=== PATIENT | male | born 1950 | race Caucasian/White ===

== ENCOUNTER 2020-07-21 10:51 | Inpatient (IN) | payer MEDICARE, OTHER ==
[2020-07-21] MEDS ORDERED: Morphine 4 MG/ML VIAL ONE ×4 (11:34→19:07)
[2020-07-21] MEDS ORDERED: Ketorolac Tromethamine 30 MG/ML VIAL ONE ×2 (11:35→16:32)
[2020-07-21] MEDS ORDERED: Dexamethasone 10 MG/ML VIAL ONE (11:35)
[2020-07-21] MEDS ORDERED: Diazepam 10 MG/2 ML SYRINGE ONE ×2 (11:52→12:45)
[2020-07-21 11:55] LABS: #Basophils 0.1 thou/uL (0.0-0.2); #Eosinphils 0.4 thou/uL (0.0-0.7); #Lymphocytes 1.3 thou/uL (1.20-3.40); #Monocytes 0.4 thou/uL (0.11-0.59); #Neutrophils 4.8 thou/uL (1.40-6.50); %Basophils 0.8 % (0.0-1.0); %Eosinophils 5.1 % (0.0-10.0); %Lymphocytes 18.8 % (21.0-51.0); %Monocytes 6.2 % (0.0-10.0); %Neutrophils 69.1 % (42.0-75.0); Hemoglobin 13.1 g/dL (14.0-18.0); Mean Corpuscular HGB CONC 33.6 g/dL (32.0-36.0); Mean Corpuscular Hemoglobin 30.8 pg (27.0-31.0); Mean Corpuscular Volume 91.6 fL (78.0-98.0); Mean Platelet Volume 6.6 fL (7.4-10.4); Platelet Count 178 thou/uL (130-400); RBC Distribution Width 11.8 % (11.5-14.5); Red Blood Cell (RBC) Count 4.27 mill/uL (4.70-6.10)
[2020-07-21 12:20] LABS: Anion Gap 11 mmol/L (10-20); BUN (Urea Nitrogen) 10 mg/dL (8.4-25.7); CRP (Inflammatory) Less than 0.50 mg/dL (= or < 0.5); Calc. Creatinine Clearance 0 mL/min (70-130); Calcium 9.2 mg/dL (7.8-10.44); Carbon Dioxide 31 mmol/L (23-31); Chloride 97 mmol/L (98-107); Glucose 116 mg/dL (80-115); Potassium 3.4 mmol/L (3.5-5.1); Sodium 136 mmol/L (136-145)
--- NOTE | 2020-07-21 12:21 | CT ---
CT abdomen and pelvis noncontrast HISTORY: Flank pain. FINDINGS: No comparison. Each renal collecting system, ureter, and urinary bladder are decompressed. At the inferior pole of t he right kidney is a 0.2 cm calculus within a nondilated calyx. Calcification throughout the arterial structures. Prominent degenerative changes lumbar spine, including severe foraminal stenoses at the L4-5 level. Scattered throughout the arterial structures are small well-defined sclerotic lesions. The largest is at the right supra-acetabular level measuring up to 1.9 cm x 1.4 cm. Patient was scanned and right lateral decubitus position, distorting intra-abdominal abnormality. Lac k of contrast limits evaluation of the soft tissues. There are bilateral renal cysts, measuring up to 2.1 cm the superior pole of the right kidney and 2.8 cm at the lateral cortex of the left kidney. No evidence of bowel obstruction or inflammation. IMPRESSION : Tiny nonobstructing right renal calculus. Sclerotic bone lesions throughout. Worrisome for metastatic bone disease. Correlate with cancer histo ry. Radionucleotide bone scan could be used to evaluate for an aggressive process (metastases). Atherosclerosis.
[2020-07-21] MEDS ORDERED: Loratadine 10 MG TAB PO PRN (14:30)
[2020-07-21] MEDS ORDERED: Bisacodyl 10 MG SUPP PR PRN (14:30)
[2020-07-21] MEDS ORDERED: Calcium Carbonate 500 MG ChewTAB PO PRN (14:30)
[2020-07-21] MEDS ORDERED: Benzonatate 100 MG CAP PO PRN (14:30)
[2020-07-21] MEDS ORDERED: hydrALAZINE 20 MG/ML VIAL SLOW IVP PRN (14:30)
[2020-07-21] MEDS ORDERED: Acetaminophen 325 MG TAB PO PRN (14:30)
[2020-07-21] MEDS ORDERED: Zolpidem Tartrate 5 MG TAB PO PRN (14:30)
[2020-07-21] MEDS ORDERED: Cepastat Lozenges 1 LOZ PO PRN (14:30)
[2020-07-21] MEDS ORDERED: Sodium Chloride 0.65% Nasal 44 ML BOT EA NARE PRN (14:30)
[2020-07-21] MEDS ORDERED: Ondansetron PF 4 MG/2 ML Vial IVP PRN (14:30)
[2020-07-21] MEDS ORDERED: Guaifenesin DM 100-10/5 ML UDCUP PO PRN (14:30)
[2020-07-21] MEDS ORDERED: Bisacodyl 5 MG TAB PO PRN (14:30)
[2020-07-21] MEDS ORDERED: Senokot S 8.6-50 MG TAB PO PRN (14:30)
[2020-07-21] MEDS ORDERED: Ondansetron ODT 4 MG TAB PO PRN (14:30)
[2020-07-21] MEDS ORDERED: Loperamide HCl 2 MG CAP PO PRN (14:30)
--- NOTE | 2020-07-21 15:31 | PDOC.HHP ---
Hospitalist HPI - History of Present Illness Intractable back pain History of Present Illness: Patient has gradually worsening lower back pain for last 3 weeks, patient has previous history of multiple back surgery in past, for last 3 weeks he has intractable back pain and now he is not able to ambulate because of low back pain, patient went to another emergency room and subsequently he was discharged to rehab and subsequently he went to home, again his pain is so unbearable that he is not able to ambulate at all, he denies any incontinence or urinary retention, patient reports that he is constipated, patient has back pain which radiates to left leg, patient feels comfortable in right lateral position, ED Course: patient is given morphine 4 mg x2, Valium 5 mg x 2, Decadron 10 mg, Toradol 15 mg, VITAL SIGNS Sat Jul 21, 2020 11:00 JORGE LUIS Martin, [facility] BP: 144/79, MAP: 100, Pulse: 106, Resp: 28 (Mild Distress), Temp: 97.9 (Oral), Pain: 10, O2 sat: 98 on (Room Air), Time: 07/21/2020 11:00. VITAL SIGNS Sat Jul 21, 2020 12:16 JORGE LUIS Mar Daylee BP: 140/92, Pulse: 122, Resp: 20, Pain: 9, O2 sat: 95 on (Room Air), Time: 07/21/2020 12:16. VITAL SIGNS Sat Jul 21, 2020 13:53 JORGE LUIS Mar Daylee BP: 105/87, Pulse: 98, Resp: 20, Pain: 8, O2 sat: 96 on (Room Air), Time: 07/21/2020 13:53. VITAL SIGNS Sat Jul 21, 2020 14:47 JORGE LUIS Mar Daylee BP: 135/79, Pulse: 92, Resp: 16, Temp: 97.8 (Oral), Pain: 3, O2 sat: 95 on (Room Air), Time: 07/21/2020 14:47. Hospitalist ROS - Review of Systems Constitutional: denies: fever, chills, sweats, weakness, malaise, other Eyes: denies: pain, vision change, conjunctivae inflammation, eyelid inflammation, redness, other ENT: denies: ear pain, ear discharge, nose pain, nose discharge, nose congestion, mouth pain, mouth swelling, throat pain, throat swelling, other Respiratory: denies: cough, dry, shortness of breath, hemoptysis, SOB with excertion, pleuritic pain, sputum, wheezing, other Cardiovascular: denies: chest pain, palpitations, orthopnea, paroxysmal noc. dyspnea, edema, light headedness, other Gastrointestinal: reports: constipation. denies: nausea, vomiting, abdominal pain, diarrhea, melena, hematochezia, other Genitourinary: denies: dysuria, frequency, incontinence, hematuria, retention, other Musculoskeletal: reports: back pain. denies: neck pain, shoulder pain, arm pain, hand pain, leg pain, foot pain, other Skin: denies: rash, lesions, justina, bruising, other - Medication Medications: Allergy no known drug allergy Home medication CURRENT MEDICATIONS morphine oral Sat Jul 21, 2020 13:10 JORGE LUIS Mar Daylee tablet : Strength - 15 mg : ORAL Patient Dose: As Needed. [place] Sat Jul 21, 2020 13:11 JORGE LUIS Mar Daylee tablet : Strength - 10 mg-325 mg : ORAL Patient Dose: every 6 hours PRN. gabapentin Sat Jul 21, 2020 13:11 JORGE LUIS Mar Daylee capsule : Strength - 400 mg : ORAL Patient Dose: 3 times a day. tiZANidine Sat Jul 21, 2020 13:11 JORGE LUIS Mar Daylee capsule : Strength - 4 mg : ORAL Patient Dose: once a day. desvenlafaxine Sat Jul 21, 2020 13:12 JORGE LUIS Mar Daylee tablet extended release 24 hr : Strength - 50 mg : ORAL Patient Dose: once a day. zolpidem oral Sat Jul 21, 2020 13:12 JORGE LUIS Mar Daylee tablet : Strength - 10 mg : ORAL Patient Dose: once a day. lisinopril Sat Jul 21, 2020 13:12 JORGE LUIS Mar Daylee tablet : Strength - 5 mg : ORAL Patient Dose: once a day. finasteride Sat Jul 21, 2020 13:13 JORGE LUIS Mar Daylee tablet : Strength - 5 mg : ORAL Patient Dose: once a day. busPIRone Sat Jul 21, 2020 13:13 JORGE LUIS Mar Daylee tablet : Strength - 15 mg : ORAL Patient Dose: once a day. terazosin Sat Jul 21, 2020 13:14 JORGE LUIS Mar, [place] capsule : Strength - 10 mg : ORAL Patient Dose: once a day. prednisoLONE Sat Jul 21, 2020 13:15 JORGE LUIS Mar Daylee tablet : Strength - 5 mg : ORAL Patient Dose: 20 mg once a day. CODE STATUS patient is full code Hospitalist History - Past Medical History Other Medical History: Chronic low back pain, Hypertension Benign enlargement of prostate Past psychiatric history anxiety and depression - Past Surgical History Other Surgical History: Spinal surgery x9, bilateral knee surgery - Family History Other Family History: No strong family history of premature coronary artery disease stroke or cancer - Social History Other Social History: Patient is , lives at home with family, no history of tobacco alcohol illicit drug abuse - Exam General Appearance: NAD, ill appearing Eye: PERRL, anicteric sclera ENT: normocephalic atraumatic, no oropharyngeal lesions Neck: supple, symmetric, no JVD, no thyromegaly Heart: RRR, no murmur, no gallops, no rubs Respiratory: CTAB, no wheezes, no rales, no ronchi Gastrointestinal: soft, non-tender, non-distended, normal bowel sounds Extremities: no cyanosis, no clubbing, no edema Skin: normal turgor, no lesions Neurological - other findings: Patient has radicular pain in the left lower extremity, he moves all 4 limb Musculoskeletal: normal tone, normal strength Psychiatric: normal affect, normal behavior, A&O x 3 Hospitalist Results - Labs Result Diagrams: 07/21/20 11:43 07/21/20 11:43 Lab results: WBC 7.0 thou/uL (4.8-10.8) 07/21/20 11:43 Hgb 13.1 g/dL (14.0-18.0) L 07/21/20 11:43 Hct 39.1 % (42.0-52.0) L 07/21/20 11:43 MCV 91.6 fL (78.0-98.0) 07/21/20 11:43 Plt Count 178 thou/uL (130-400) 07/21/20 11:43 Neutrophils % 69.1 % (42.0-75.0) 07/21/20 11:43 Sodium 136 mmol/L (136-145) 07/21/20 11:43 Potassium 3.4 mmol/L (3.5-5.1) L 07/21/20 11:43 Chloride 97 mmol/L (98-107) L 07/21/20 11:43 Carbon Dioxide 31 mmol/L (23-31) 07/21/20 11:43 BUN 10 mg/dL (8.4-25.7) 07/21/20 11:43 Creatinine 1.21 mg/dL (0.7-1.3) 07/21/20 11:43 Glucose 116 mg/dL (80-115) H 07/21/20 11:43 Calcium 9.2 mg/dL (7.8-10.44) 07/21/20 11:43 C-Reactive Protein Less than 0.50 mg/dL (= or < 0.5) 07/21/20 11:43 - EKG Interpretation EKG: Normal sinus rhythm - Radiology Interpretation CT scan - abdomen Status: image reviewed by me Additional Comment: IMPRESSION : Tiny nonobstructing right renal calculus. Sclerotic bone lesions throughout. Worrisome for metastatic bone disease. Correlate with cancer histo ry. Radionucleotide bone scan could be used to evaluate for an aggressive process (metastases). Atherosclerosis. Hospitalist H&P A/P - Problem (1) Intractable low back pain Code(s): M54.5 - LOW BACK PAIN Status: Acute (2) Lumbar back pain with radiculopathy affecting left lower extremity Code(s): M54.16 - RADICULOPATHY, LUMBAR REGION Status: Acute (3) Hypertension Code(s): I10 - ESSENTIAL (PRIMARY) HYPERTENSION Status: Chronic (4) Hypokalemia Code(s): E87.6 - HYPOKALEMIA Status: Acute (5) Metastasis Code(s): C79.9 - SECONDARY MALIGNANT NEOPLASM OF UNSPECIFIED SITE Status: Suspected Qualifiers: Area of secondary neoplastic involvement: bone Qualified Code(s): C79.51 - Secondary malignant neoplasm of bone - Plan Plan: Admission to medical floor Pain control with morphine and [place] Bone scan to rule out metastasis Patient will need MRI lumbar spine if he is able to lie down his back, Neurosurgery consultation and pain management consultation PT OT consultation His home medication will be reconciled We are keeping this patient in hospital because he has intractable back pain and that his pain is legitimate as well as he is not ambulatory, he cannot be managed at home with this level of pain, if pain medicine does not work then will consider [employer]PRENTICE pump DVT prophylaxis Lovenox 40 mg subcu daily GI prophylaxis Pepcid Disposition plan based on clinical course may need rehab again
[2020-07-21 16:50] LABS: Bacteria/HPF None Seen HPF (None Seen); Bilirubin Negative (Negative); Blood, Urine Negative (Negative); Clarity Clear (Clear); Glucose, Urine (Dipstick) Normal (Negative); Ketone, Urine Negative (Negative); Leukocyte Negative Leu/uL (Negative); Nitrite Negative (Negative); Protein, Urine (Dipstick) Negative (Neg-Trace); RBC/HPF None Seen HPF (0-3); Specific Gravity, Urine 1.008 (1.002-1.036); Squamous Epithelial None Seen HPF (0-3); Urobilinogen Normal mg/dL (Less than 2); WBC/HPF 0-3 HPF (0-3)
[2020-07-21] MEDS ORDERED: Potassium Chloride 20 MEQ TAB PO SCH (19:00)
[2020-07-21 20:35] VITALS: BMI 34.8
[2020-07-21] MEDS: HYDROcodone/Acetaminophen 10/325 mg Tablet PO PRN (20:45)
[2020-07-21] MEDS: Famotidine 20 MG TAB PO SCH (22:02)
[2020-07-21] MEDS: Morphine 4 MG/ML VIAL SLOW IVP PRN (22:08)
[2020-07-22 02:00] LABS: SARS-CoV-2 MS2 Positive; SARS-CoV-2 N Gene Negative; SARS-CoV-2 S Gene Negative; SARS-CoV-2 by NAA Not Detected (NotDetected); SARS-CoV-2 orf1ab Negative
[2020-07-22] MEDS: Morphine 4 MG/ML VIAL SLOW IVP PRN ×2 (03:44→10:05)
[2020-07-22] MEDS: Ketorolac Tromethamine 30 MG/ML VIAL IVP PRN ×2 (03:51→14:57)
[2020-07-22] MEDS: HYDROcodone/Acetaminophen 10/325 mg Tablet PO PRN ×2 (05:36→14:24)
[2020-07-22 06:45] LABS: #Lymphocytes 0.8 thou/uL (1.20-3.40); #Monocytes 0.5 thou/uL (0.11-0.59); #Neutrophils 6.4 thou/uL (1.40-6.50); %Basophils 0.3 % (0.0-1.0); %Eosinophils 0.3 % (0.0-10.0); %Lymphocytes 10.5 % (21.0-51.0); %Monocytes 6.7 % (0.0-10.0); %Neutrophils 82.2 % (42.0-75.0); Hemoglobin 11.7 g/dL (14.0-18.0); Mean Corpuscular HGB CONC 32.5 g/dL (32.0-36.0); Mean Corpuscular Hemoglobin 29.3 pg (27.0-31.0); Mean Corpuscular Volume 90.1 fL (78.0-98.0); Mean Platelet Volume 7.1 fL (7.4-10.4); Platelet Count 173 thou/uL (130-400); RBC Distribution Width 11.6 % (11.5-14.5); Red Blood Cell (RBC) Count 3.99 mill/uL (4.70-6.10); White Blood Cell (WBC) Count 7.8 thou/uL (4.8-10.8)
[2020-07-22 06:56] LABS: ALT (SGPT) 18 U/L (8-55); AST (SGOT) 12 U/L (5-34); Albumin 3.3 g/dL (3.4-4.8); Alkaline Phosphatase 61 U/L (40-110); Anion Gap 13 mmol/L (10-20); BUN (Urea Nitrogen) 16 mg/dL (8.4-25.7); Bilirubin, Total 0.3 mg/dL (0.2-1.2); Calc. Creatinine Clearance 89 mL/min (70-130); Calcium 8.9 mg/dL (7.8-10.44); Carbon Dioxide 25 mmol/L (23-31); Chloride 101 mmol/L (98-107); Globulin 3.4 g/dL (2.4-3.5); Glucose 132 mg/dL (80-115); Potassium 4.3 mmol/L (3.5-5.1); Protein, Total 6.7 g/dL (5.8-8.1); Sodium 135 mmol/L (136-145)
[2020-07-22] MEDS: Famotidine 20 MG TAB PO SCH (08:21)
[2020-07-22] MEDS: Enoxaparin Sodium 40 MG/0.4 ML SYRINGE SC SCH (08:24)
--- NOTE | 2020-07-22 08:40 | PRG ---
DATE OF SERVICE: 07/22/2020 I personally interviewed and examined the patient, agreed with documentation of Ivan Almaguer PA-C, dated 07/22/2020. Briefly, Tyler Rosario is a 69-year-old gentleman who had a cervical spine operation by Dr. Logan 7 years ago. 4 weeks ago, he was standing in the bathtub, slipped, and fell and he has had intractable back pain since. Dr. Watson is offered him an epidural steroid injection planned in the future. It is with this history that Mr. Rosario is getting worse and is unable to stand or walk for any significant distance. He came to the emergency department for further care. Mr. Rosario's pain starts in the back and radiates in L5 distribution to the top of the left foot. He has not noticed much in the way of weakness. No right leg symptoms. There are no changes in bowel or bladder control. He has not had fevers or chills. Overnight, the maximum temperature I see recorded is 99.3 degrees Fahrenheit. Blood pressures are in the 130s to 150s. On examination, the EHL is weak on the left, but he tells me he had a laceration to the tendon there. The anterior tib is strong. There is numbness in L5 distribution on the left compared to the right. Reflexes were preserved. CT examination of the spine and bony pelvis shows sclerotic lesions diffusely in the skeleton. The sclerotic lesions could represent diffuse metastatic disease, likely prostate. I do not have MR imaging, specifically looking at the left L5 nerve root. IMPRESSION: 1. Left L5 radiculopathy. 2. Prior cervical spine surgery. 3. Diffuse bony sclerotic lesions, worrisome for metastatic disease (possibly prostate). I reassured Mr. Rosario that the neurosurgery was interested in helping him with his radicular pain. His possibly metastatic issues, the multiple sclerotic lesions within the bony skeleton, need workup. There is one just above the acetabulum in the pelvis, there is anteriorly in the pelvis, there are multiple in the lumbar spine, there is one in the sacrum. We will defer to the Medical team for workup of metastatic disease causing blastic lesions. At some point, an MRI scan of lumbar spine will be helpful in determining what is compressing the L5 nerve root on the left. Pain management could be initiated with L5 nerve root block and Dr. Watson who already knows the patient. An MRI scan, when it is done, may need to be administered with the anesthesia. Once it was done, I revisit the patient. Job ID: [id number] MTDD
[2020-07-22] MEDS ORDERED: FLU VACC QS2020-21(65YR UP)/PF 240 MCG/0.7 ML SYRINGE IM ONE (09:00)
[2020-07-22] MEDS: Polyethylene Glycol 3350 17 GM Packet PO SCH ×2 (09:46→21:38)
[2020-07-22] MEDS: busPIRone HCl 5 MG TAB PO SCH (09:47)
[2020-07-22] MEDS: Pregabalin 50 MG CAP PO SCH ×3 (09:47→21:39)
[2020-07-22] MEDS: tiZANidine HCl 4 MG TAB PO SCH ×2 (09:48→21:39)
[2020-07-22] MEDS: Finasteride 5 MG TAB PO SCH (09:49)
[2020-07-22] MEDS: Lisinopril 5 MG TAB PO SCH (09:49)
[2020-07-22] MEDS: Dexamethasone 4 mg/ml Vial SLOW IVP SCH (09:50)
--- NOTE | 2020-07-22 10:48 | PDOC.HOSPP ---
- Subjective Encounter Date: 07/22/20 Encounter Time: 09:45 Subjective: Patient still has intractable back pain, he requires pain medicine, he is not able to lie down on his back without significant pain, - Objective Vital Signs & Weight: Vital Signs (12 hours) Temp Pulse Resp BP Pulse Ox 07/22/20 09:49 81 07/22/20 07:54 99.3 F 81 20 156/72 H 94 L 07/22/20 06:00 98.2 F 115 H 20 130/65 07/22/20 02:00 98.0 F 110 H 20 134/65 94 L Weight Weight 250 lb I&O: 07/21/20 07/22/20 07/23/20 06:59 06:59 06:59 Intake Total 600 Output Total 700 Balance -100 Result Diagrams: 07/22/20 06:24 07/22/20 06:24 Hospitalist ROS - Review of Systems Constitutional: denies: fever, chills, sweats, weakness, malaise, other Eyes: denies: pain, vision change, conjunctivae inflammation, eyelid inflammati on, redness, other ENT: denies: ear pain, ear discharge, nose pain, nose discharge, nose congestion, mouth pain, mouth swelling, throat pain, throat swelling, other Respiratory: denies: cough, dry, shortness of breath, hemoptysis, SOB with excertion, pleuritic pain, sputum, wheezing, other Cardiovascular: denies: chest pain, palpitations, orthopnea, paroxysmal noc. dyspnea, edema, light headedness, other Gastrointestinal: reports: constipation. denies: nausea, vomiting, abdominal pain, diarrhea, melena, hematochezia, other Genitourinary: denies: dysuria, frequency, incontinence, hematuria, retention, other Musculoskeletal: reports: back pain. denies: neck pain, shoulder pain, arm pain, hand pain, leg pain, foot pain, other - Medication Medications: Active Medications Generic Name Dose Route Start Last Admin Trade Name Freq PRN Reason Stop Dose Admin Hydrocodone Bitart/Acetaminophen 1 tab 07/21/20 14:30 07/22/20 05:36 Hydrocodone/Acetaminophen 10/325 Mg Tablet PO 1 tab Q4H PRN Administration Moderate Pain (4-6) Buspirone HCl 15 mg 07/22/20 09:00 07/22/20 09:47 Buspirone Hcl 5 Mg Tab PO 15 mg DAILY TERRELL Administration Dexamethasone 6 mg 07/22/20 09:00 07/22/20 09:50 Dexamethasone 4 Mg/Ml Vial SLOW IVP 6 mg DAILY TERRELL Administration Enoxaparin Sodium 40 mg 07/22/20 09:00 07/22/20 08:24 Enoxaparin Sodium 40 Mg/0.4 Ml Syringe SC 40 mg 0900 TERRELL Administration Finasteride 5 mg 07/22/20 09:00 07/22/20 09:49 Finasteride 5 Mg Tab PO 5 mg DAILY TERRELL Administration Ketorolac Tromethamine 15 mg 07/21/20 17:12 07/22/20 03:51 Ketorolac Tromethamine 30 Mg/Ml Vial IVP 07/26/20 17:13 15 mg Q6H PRN Administration Pain Lisinopril 5 mg 07/22/20 09:00 07/22/20 09:49 Lisinopril 5 Mg Tab PO Not Given DAILY [facility] Morphine Sulfate 4 mg 07/21/20 14:30 07/22/20 10:05 Morphine 4 Mg/Ml Vial SLOW IVP 4 mg Q4H PRN Administration Severe Pain (7-10) Pantoprazole Sodium 40 mg 07/22/20 09:00 07/22/20 09:49 Pantoprazole 40 Mg Tab PO Not Given DAILY [facility] Polyethylene Glycol 17 gm 07/22/20 09:00 07/22/20 09:46 Polyethylene Glycol 3350 17 Gm Packet PO 17 gm BID TERRELL Administration Pregabalin 100 mg 07/22/20 09:00 07/22/20 09:47 Pregabalin 50 Mg Cap PO 100 mg TID TERRELL Administration Sodium Chloride 10 ml 07/21/20 14:30 07/22/20 03:52 Flush - Normal Saline 10 Ml Syringe IVF 10 ml Q12HR PRN Administration Saline Flush Tizanidine HCl 4 mg 07/22/20 09:00 07/22/20 09:48 Tizanidine Hcl 4 Mg Tab PO 4 mg BID TERRELL Administration Zolpidem Tartrate 5 mg 07/21/20 14:30 07/22/20 00:00 Zolpidem Tartrate 5 Mg Tab PO 5 mg HSPRN PRN Administration Insomnia - Exam General Appearance: NAD, awake alert Eye: PERRL, anicteric sclera ENT: normocephalic atraumatic, no oropharyngeal lesions Neck: supple, symmetric, no JVD, no thyromegaly Heart: RRR, no murmur, no gallops, no rubs Respiratory: no wheezes, no rales, no ronchi Gastrointestinal: soft, non-tender, non-distended, normal bowel sounds Extremities: no cyanosis, no clubbing, no edema Skin: normal turgor, no lesions Neurological: no focal deficits Musculoskeletal: normal tone, normal strength Psychiatric: normal affect, normal behavior Hosp A/P (1) Intractable low back pain Code(s): M54.5 - LOW BACK PAIN Status: Acute (2) Lumbar back pain with radiculopathy affecting left lower extremity Code(s): M54.16 - RADICULOPATHY, LUMBAR REGION Status: Acute (3) Hypokalemia Code(s): E87.6 - HYPOKALEMIA Status: Resolved (4) Metastasis Code(s): C79.9 - SECONDARY MALIGNANT NEOPLASM OF UNSPECIFIED SITE Status: Suspected Qualifiers: Area of secondary neoplastic involvement: bone Qualified Code(s): C79.51 - Secondary malignant neoplasm of bone (5) Hypertension Code(s): I10 - ESSENTIAL (PRIMARY) HYPERTENSION Status: Chronic - Plan old records reviewed/req, PT/OT, DVT proph w/lovenox Currently patient is on morphine, Toradol, [place] for pain control I have reconciled his home medication Patient will need MRI lumbar spine under anesthesia as patient is not able to lie down flat We will check PSA Bone scan has been ordered All investigation will be done tomorrow Neurosurgery recommendation appreciated Medication reviewed and continue provide symptomatic and supportive care,
[2020-07-22] MEDS: Venlafaxine HCl XR 75 MG CAP PO SCH (11:03)
--- NOTE | 2020-07-22 11:05 | CON ---
DATE OF CONSULTATION: 07/22/2020 CHIEF COMPLAINT: Intractable back pain. HISTORY OF PRESENT ILLNESS: Mr. Rosario is a 69-year-old gentleman with prior history of BPH. He tells me for the past 2 weeks, he has back pain and so severe, he has not been eating because he is afraid to take a trip to the bathroom and fall. He has been drinking a lot of fluids and just nibbling on Jad crackers. Last night, he does tell me that his left leg gave out and fell which warranted a trip to the emergency department. He has a past history of [place] back [place] [address] Grant; in 1997, Dr. Paige or Dr. Palafox in [place]; and he has had neck surgery in 1990 by unknown doctor; 1994 in [place] [address] Logan. He has an upcoming appointment with Pain Management for his left L5 radiculopathy. His left leg is getting much worse and is not allowing him to stand or walk for any significant distance. Currently, there are no scans of his lower back. He denies bladder or bowel dysfunction. REVIEW OF SYSTEMS: CONSTITUTIONAL: Denies fever, chills. ENT: Denies change in vision or hearing. CARDIAC: Denies chest pain, shortness of breath, diaphoresis. PULMONARY: Denies shortness of breath, cough, hemoptysis. GI: Denies abdominal pain, nausea, vomiting, diarrhea, change in stool formation and consistency. : Denies trouble with urination, frequency of urination, bloody urine. SKIN: Denies skin rash, bruising, bleeding, skin masses. MUSCULOSKELETAL: As per history of present illness. NEUROLOGICAL: As per history of present illness. PSYCHOLOGICAL: As per history of present illness. MEDICAL HISTORY: BPH. SURGICAL HISTORY: 1990, neck; 1985, Dr. Grant, lower back; 1994 in [place], [facility], neck; 1990, neck, unknown doctor; 1997, Dr. Paige or may be Dr. Palafox in [place], lower back; 2012, Dr. Logan, neck, posterior; bilateral knee surgery. SOCIAL HISTORY: Patient denies alcohol use, illicit drugs, or nicotine. CURRENT MEDICATIONS: 1. Morphine 15 mg. 2. [place] 10 mg/325 mg. 3. Gabapentin 400 mg. 4. Tizanidine 4 mg. 5. Desvenlafaxine 50 mg. 6. Zolpidem 10 mg. 7. Lisinopril 5 mg. 8. Finasteride 5 mg. 9. Buspirone 15 mg. 10. Terazosin 10 mg. 11. Prednisone 5 mg. ALLERGIES: CODEINE. PHYSICAL EXAMINATION: VITAL SIGNS: Blood pressure 138/78, pulse 82, temperature 97.8. HEENT: Pupils are equal. Extraocular movements are intact. NECK: Soft, supple. No masses are noted. Range of motion is intact and nonpainful. NEUROLOGICAL: Awake, alert, and oriented x3. Memory, attention, fund of knowledge normal. Cranial nerves are grossly intact. EXTREMITIES: He has good strength in the left iliopsoas, quadriceps, hamstring, anterior tib. There is reduced strength in his EHL and gastrocnemius. There is L5 dermatomal sensory loss. Reflexes are symmetric. The toes are downgoing. IMAGING: MRI of the L-spine with and without contrast pending. ASSESSMENT: Left L5 radiculopathy. PLAN: Epidural steroid injection by Pain Management group. MRI of the L-spine with and without contrast with anesthesia due to patient unable to lying his back because of severe pain. Further treatment depending on the MRI of the L-spine. Job ID: [id number] [facility]
[2020-07-22] MEDS ORDERED: Fentanyl 100 MCG/2 ML VIAL SLOW IVP PRN (15:40)
[2020-07-22] MEDS ORDERED: diphenhydrAMINE 25 MG CAP PO PRN (15:56)
[2020-07-22] MEDS ORDERED: Ondansetron PF 4 MG/2 ML Vial IVP PRN (15:56)
[2020-07-22] MEDS ORDERED: Promethazine HCl 25 MG/ML VIAL IM PRN (15:56)
[2020-07-22] MEDS ORDERED: diphenhydrAMINE 50 MG/ML VIAL IVP PRN (15:56)
[2020-07-22] MEDS ORDERED: Naloxone HCl 0.4 mg/ml Vial IV PRN (15:56)
[2020-07-22] MEDS ORDERED: diphenhydrAMINE 50 MG/ML VIAL IM PRN (15:56)
[2020-07-22] MEDS ORDERED: Communication Order-Pharmacy FS SCH (16:00)
[2020-07-22] MEDS: HYDROmorphone 10 mg/100 ml CADD IVPB PRN (17:16)
[2020-07-22] MEDS: Terazosin HCl 5 MG CAP PO SCH (21:38)
[2020-07-23] MEDS: Zolpidem Tartrate 5 MG TAB PO PRN (00:18)
[2020-07-23] MEDS: Ketorolac Tromethamine 30 MG/ML VIAL IVP PRN (00:37)
[2020-07-23] MEDS: Venlafaxine HCl XR 75 MG CAP PO SCH (08:17)
[2020-07-23] MEDS: Pregabalin 50 MG CAP PO SCH ×3 (08:18→22:22)
[2020-07-23] MEDS: tiZANidine HCl 4 MG TAB PO SCH ×2 (08:19→22:22)
[2020-07-23] MEDS: Dexamethasone 4 mg/ml Vial SLOW IVP SCH (08:19)
[2020-07-23] MEDS: busPIRone HCl 5 MG TAB PO SCH (08:19)
[2020-07-23] MEDS: Polyethylene Glycol 3350 17 GM Packet PO SCH ×2 (08:20→22:24)
[2020-07-23] MEDS: Finasteride 5 MG TAB PO SCH (08:20)
[2020-07-23] MEDS: Lisinopril 5 MG TAB PO SCH (08:20)
[2020-07-23] MEDS: Enoxaparin Sodium 40 MG/0.4 ML SYRINGE SC SCH (08:21)
[2020-07-23] MEDS ORDERED: Fentanyl 100 MCG/2 ML VIAL ONE (09:19)
[2020-07-23] MEDS ORDERED: PROPOFOL 200 MG/20 ML VIAL ONE (10:01)
[2020-07-23] MEDS ORDERED: ePHEDrine 50 MG/ML VIAL ONE (10:01)
[2020-07-23] MEDS ORDERED: Lidocaine 1% PF 5 ML VIAL ONE (10:01)
[2020-07-23] MEDS ORDERED: Promethazine HCl 25 MG/ML VIAL ONE (11:23)
--- NOTE | 2020-07-23 13:35 | MRI ---
MRI LUMBAR SPINE WITH AND WITHOUT CONTRAST: Date: 07/23/2020 INDICATION: Back pain. Prior lumbar surgery. No comparison MRIs. Correlation made to CT abdomen and pelvis dated 07/21/2020. Sclerotic foci were described on this rec ent CT. Degenreative disc changes noted. FINDINGS: Lumbar vertebra maintain height and alignment. Moderate degenerative changes are seen throughout. Deg enerative disc and end plate changes are noted at L4-5 and L5-S1. Loss of disc space at L5-S1. No abn ormal osseous signal seen by MRI. L1-2: Diffuse disc bulge with posterior hypertrophic changes result in mild central canal stenosis. L2-3: Broad based disc bulge with moderate facet hypertrophy results in moderate central canal steno sis. L3-4: Broad based disc bulge at the disc space seen. Prominent facet hypertrophy with posterior lami nectomy change. There is abnormal mass-like signal in the anterior spinal canal on the left extending inferior to the disc consistent with extruded disc fragment which measures up to 15.0 mm AP dimension on axial plane . Just inferior to this extruded disc fragment in the spinal canal on the left is another mass-like ext radural signal in the anterior spinal canal which measures approximately 11.0 mm AP dimension in the axial plane. This would be most consistent with a small sequestered disc fragment. These changes comp ress the thecal sac anteriorly on the left and are associated with facet hypertrophy and result in se ke central canal stenosis at the L3-4 level. At L4-5, there is diffuse disc bulge with facet arthrosis and hypertrophy resulting in moderate centr al canal stenosis. There is a disc osteophyte complex projecting to the right with right foraminal extension producing s evere right foraminal stenosis and displacement of the exiting right L4 nerve root. At L5-S1, annular tear with focal disc protrusion centrally associated with broad based bulge abuttin g the anterior thecal sac. Facet hypertrophy. Mild central canal stenosis. Mild bilateral foraminal s tenosis. Diffuse disc bulge extends into the foramina bilaterally and may contact both exiting nerve roots. IMPRESSION: 1. Extruded disc on the left at L3-4 with inferior extension and sequestered fragment seen in anteri or spinal canal on the left posterior to L4 vertebra resulting in severe central canal stenosis and b ilateral foraminal stenosis at the L3-4 level as described above. 2. Broad based bulge at L4-5 with facet hypertrophy. A disc osteophyte complex projects into the rig ht foramina at this level as described above. 3. Broad based protrusion at L5-S1 as described with bilateral foraminal encroachment. POS: [place]
[2020-07-23] MEDS: HYDROmorphone 10 mg/100 ml CADD IVPB PRN (17:48)
--- NOTE | 2020-07-23 19:25 | PDOC.HOSPP ---
- Subjective Encounter Date: 07/23/20 Subjective: pleasant, but remains in pain. - Objective Vital Signs & Weight: Vital Signs (12 hours) Temp Pulse Resp BP Pulse Ox 07/23/20 16:11 99.0 F 81 16 114/65 95 07/23/20 13:30 96 121/68 93 L 07/23/20 13:00 61 146/74 H 07/23/20 12:30 80 139/78 07/23/20 12:00 71 16 121/68 94 L 07/23/20 08:00 97.9 F 59 L 22 H 115/69 97 Weight Weight 250 lb I&O: 07/22/20 07/23/20 07/24/20 06:59 06:59 06:59 Intake Total 600 110 Output Total 700 1000 250 Balance -100 -890 -250 Result Diagrams: 07/22/20 06:24 07/22/20 06:24 Hospitalist ROS - Medication Medications: Active Medications Generic Name Dose Route Start Last Admin Trade Name Freq PRN Reason Stop Dose Admin Buspirone HCl 15 mg 07/22/20 09:00 07/23/20 08:19 Buspirone Hcl 5 Mg Tab PO 15 mg DAILY TERRELL Administration Dexamethasone 6 mg 07/22/20 09:00 07/23/20 08:19 Dexamethasone 4 Mg/Ml Vial SLOW IVP 6 mg DAILY TERRELL Administration Enoxaparin Sodium 40 mg 07/22/20 09:00 07/23/20 08:21 Enoxaparin Sodium 40 Mg/0.4 Ml Syringe SC 40 mg 0900 TERRELL Administration Finasteride 5 mg 07/22/20 09:00 07/23/20 08:20 Finasteride 5 Mg Tab PO 5 mg DAILY TERRELL Administration Hydromorphone HCl 0 mg 07/22/20 15:56 07/23/20 17:48 Hydromorphone 10 Mg/100 Ml Cadd IVPB 10 mg INF PRN Administration Pain Ketorolac Tromethamine 15 mg 07/21/20 17:12 07/23/20 00:37 Ketorolac Tromethamine 30 Mg/Ml Vial IVP 07/26/20 17:13 15 mg Q6H PRN Administration Pain Lisinopril 5 mg 07/22/20 09:00 07/23/20 08:20 Lisinopril 5 Mg Tab PO 5 mg DAILY TERRELL Administration Pantoprazole Sodium 40 mg 07/22/20 09:00 07/23/20 08:19 Pantoprazole 40 Mg Tab PO 40 mg DAILY TERRELL Administration Polyethylene Glycol 17 gm 07/22/20 09:00 07/23/20 08:20 Polyethylene Glycol 3350 17 Gm Packet PO 17 gm BID TERRELL Administration Pregabalin 100 mg 07/22/20 09:00 07/23/20 15:35 Pregabalin 50 Mg Cap PO 100 mg TID TERRELL Administration Sodium Chloride 10 ml 07/21/20 14:30 07/22/20 03:52 Flush - Normal Saline 10 Ml Syringe IVF 10 ml Q12HR PRN Administration Saline Flush Terazosin HCl 10 mg 07/22/20 21:00 07/22/20 21:38 Terazosin Hcl 5 Mg Cap PO 10 mg HS TERRELL Administration Tizanidine HCl 4 mg 07/22/20 09:00 07/23/20 08:19 Tizanidine Hcl 4 Mg Tab PO 4 mg BID TERRELL Administration Venlafaxine HCl 75 mg 07/22/20 09:00 07/23/20 08:17 Venlafaxine Hcl Xr 75 Mg Cap PO 75 mg DAILY TERRELL Administration - Exam General Appearance: awake alert Eye: PERRL ENT: normocephalic atraumatic Neck: supple, symmetric Heart: RRR, murmur present Respiratory: no wheezes, no rales Gastrointestinal: soft, non-tender, non-distended, normal bowel sounds Extremities: no cyanosis, no clubbing Skin: normal turgor, no lesions Neurological: cranial nerve grossly intact, normal sensation to touch, no focal deficits, no new deficit Musculoskeletal - other findings: pain on palpation of the lower back. Hosp A/P (1) Intractable low back pain Code(s): M54.5 - LOW BACK PAIN Status: Acute (2) Hypertension Code(s): I10 - ESSENTIAL (PRIMARY) HYPERTENSION Status: Chronic (3) Metastasis Code(s): C79.9 - SECONDARY MALIGNANT NEOPLASM OF UNSPECIFIED SITE Status: Suspected Qualifiers: Area of secondary neoplastic involvement: bone Qualified Code(s): C79.51 - Secondary malignant neoplasm of bone - Plan HE had the MRI and the results were noted, nuclear scan could not be done but will be tomorrow. I will touch base with Neurosurgery in am, until then continue with pain control.
[2020-07-23] MEDS: Terazosin HCl 5 MG CAP PO SCH (22:22)
--- NOTE | 2020-07-24 07:53 | PRG ---
DATE OF SERVICE: 07/24/2020 I saw Mr. Rosario this morning in his hospital room. He went for his MR images yesterday. There is some motion on the images suggesting that he had IV sedation rather than general anesthesia. Mr. Rosario still tells me he cannot stand or walk due to pain radiating down the left leg. It does go to the top of the foot. Among the electronically recorded vital signs, I do not see any fevers. Blood pressures have been in the 90s to 120s. On examination, there is weakness in the anterior tib. There is a tendon injury in the EHL on the left side that makes evaluation of that muscle impossible. There is mild quadriceps weakness. MR imaging does not show significant enhancement around the sclerotic lesions of the spine. There is a Schmorl node at L2 that does enhance suggesting it is newer rather than older, but it looks benign. There is intervertebral disk herniation on the left side at L3-4 with inferior migration. This resulted in some severe canal and especially left lateral recess stenosis. There is right foraminal stenosis at L4-5, the site that is completely asymptomatic. IMPRESSION: 1. Multiple sclerotic lesions in the bone without significant enhancement (pelvis, sacrum, lumbar spine). 2. Left lumbar intervertebral disk herniation at L3-4 causing radiculopathy. Once Mr. Rosario's metastatic workup is complete, we can consider surgical intervention for his radiculopathy. Injections and therapy at time did not make it better. INFORMED CONSENT: I discussed indications, risks, benefits, and alternatives to laminectomy and microdiskectomy. The risks discussed included, but were not limited to, bleeding, infection, CSF leak, nerve damage, paralysis, incontinence, wheelchair dependence, major blood vessel injury, cardiopulmonary complications of anesthesia and . He understands the risks, but wants to proceed. We will look at the operating room schedule on and Thursday and fit him in when there is an opening. Hopefully, the workup for metastatic disease and the medical service is done by then. Need to be n.p.o. after midnight. Antibiotics will need to be arranged and will need to be added to the schedule. Addendum: two bright areas appear on bone scan - a sclerotic area of the lateral right 6th rib and the anterior iliac crest on the left. These may have been injured in a fall 4 weeks ago, or they are concerning. Job ID: [id number] [facility]
[2020-07-24] MEDS: Dexamethasone 4 mg/ml Vial SLOW IVP SCH (09:14)
[2020-07-24] MEDS: tiZANidine HCl 4 MG TAB PO SCH ×2 (09:17→22:12)
[2020-07-24] MEDS: busPIRone HCl 5 MG TAB PO SCH (09:18)
[2020-07-24] MEDS: Pregabalin 50 MG CAP PO SCH ×3 (09:18→22:12)
[2020-07-24] MEDS: Finasteride 5 MG TAB PO SCH (09:20)
[2020-07-24] MEDS: Lisinopril 5 MG TAB PO SCH (09:20)
[2020-07-24] MEDS: Polyethylene Glycol 3350 17 GM Packet PO SCH ×2 (09:21→22:13)
[2020-07-24] MEDS: Enoxaparin Sodium 40 MG/0.4 ML SYRINGE SC SCH (09:22)
[2020-07-24] MEDS: Venlafaxine HCl XR 75 MG CAP PO SCH (09:22)
--- NOTE | 2020-07-24 12:32 | PDOC.HOSPP ---
- Subjective Encounter Date: 07/24/20 Subjective: appears better today, his pain is controlled. - Objective Vital Signs & Weight: Vital Signs (12 hours) Temp Pulse Resp BP Pulse Ox 07/24/20 11:53 98.7 F 73 20 118/59 L 98 07/24/20 09:20 67 07/24/20 08:00 97.7 F 67 20 118/61 98 07/24/20 06:25 98.3 F 65 16 102/59 L Weight Weight 250 lb I&O: 07/23/20 07/24/20 07/25/20 06:59 06:59 06:59 Intake Total 110 Output Total 1000 700 Balance -890 -700 Result Diagrams: 07/22/20 06:24 07/22/20 06:24 Hospitalist ROS - Medication Medications: Active Medications Generic Name Dose Route Start Last Admin Trade Name Freq PRN Reason Stop Dose Admin Buspirone HCl 15 mg 07/22/20 09:00 07/24/20 09:18 Buspirone Hcl 5 Mg Tab PO 15 mg DAILY TERRELL Administration Dexamethasone 6 mg 07/22/20 09:00 07/24/20 09:14 Dexamethasone 4 Mg/Ml Vial SLOW IVP 6 mg DAILY TERRELL Administration Enoxaparin Sodium 40 mg 07/22/20 09:00 07/24/20 09:22 Enoxaparin Sodium 40 Mg/0.4 Ml Syringe SC 40 mg 0900 TERRELL Administration Finasteride 5 mg 07/22/20 09:00 07/24/20 09:20 Finasteride 5 Mg Tab PO 5 mg DAILY TERRELL Administration Hydromorphone HCl 0 mg 07/22/20 15:56 07/23/20 17:48 Hydromorphone 10 Mg/100 Ml Cadd IVPB 10 mg INF PRN Administration Pain Ketorolac Tromethamine 15 mg 07/21/20 17:12 07/23/20 00:37 Ketorolac Tromethamine 30 Mg/Ml Vial IVP 07/26/20 17:13 15 mg Q6H PRN Administration Pain Lisinopril 5 mg 07/22/20 09:00 07/24/20 09:20 Lisinopril 5 Mg Tab PO 5 mg DAILY TERRELL Administration Pantoprazole Sodium 40 mg 07/22/20 09:00 07/24/20 09:19 Pantoprazole 40 Mg Tab PO 40 mg DAILY TERRELL Administration Polyethylene Glycol 17 gm 07/22/20 09:00 07/24/20 09:21 Polyethylene Glycol 3350 17 Gm Packet PO Not Given BID TERRELL Pregabalin 100 mg 07/22/20 09:00 07/24/20 09:18 Pregabalin 50 Mg Cap PO 100 mg TID TERRELL Administration Sodium Chloride 10 ml 07/21/20 14:30 07/22/20 03:52 Flush - Normal Saline 10 Ml Syringe IVF 10 ml Q12HR PRN Administration Saline Flush Terazosin HCl 10 mg 07/22/20 21:00 07/23/20 22:22 Terazosin Hcl 5 Mg Cap PO 10 mg HS TERRELL Administration Tizanidine HCl 4 mg 07/22/20 09:00 07/24/20 09:17 Tizanidine Hcl 4 Mg Tab PO 4 mg BID TERRELL Administration Venlafaxine HCl 75 mg 07/22/20 09:00 07/24/20 09:22 Venlafaxine Hcl Xr 75 Mg Cap PO 75 mg DAILY TERRELL Administration - Exam General Appearance: awake alert Eye: PERRL ENT: normocephalic atraumatic Neck: supple, symmetric Heart: RRR, no murmur Respiratory: CTAB, no wheezes Gastrointestinal: soft, non-tender, non-distended, normal bowel sounds Extremities: no cyanosis, no clubbing Skin: normal turgor, no lesions Neurological: cranial nerve grossly intact, normal sensation to touch Hosp A/P (1) Intractable low back pain Code(s): M54.5 - LOW BACK PAIN Status: Acute (2) Hypertension Code(s): I10 - ESSENTIAL (PRIMARY) HYPERTENSION Status: Chronic (3) Metastasis Code(s): C79.9 - SECONDARY MALIGNANT NEOPLASM OF UNSPECIFIED SITE Status: Suspected Qualifiers: Area of secondary neoplastic involvement: bone Qualified Code(s): C79.51 - Secondary malignant neoplasm of bone - Plan HE had the MRI and the results were noted, nuclear scan could not be done but will be tomorrow. I will touch base with Neurosurgery in am, until then continue with pain control. Plan for today 07/24 continue with pain control He is awaiting his bone scan to be done today. For OR or Thursday.
--- NOTE | 2020-07-24 14:50 | NM ---
NUCLEAR MEDICINE BONE SCAN WHOLE BODY: (Skeletal scintigraphy) DATE: 07/24/2020 HISTORY: 69-year-old male with numerous tiny sclerotic skeletal lesions found on recent CT abdomen and pelvis noncontrast TECHNIQUE: IV injection of technetium 99m-MDP: 31.4 mCi 3 hour delayed whole body skeletal scintigraphy in anterior and posterior views. FINDINGS: There is bilaterally increased uptake of radiopharmaceutical in the major joints and the spine, consi stent with degenerative changes. Otherwise, there are no foci of asymmetrically increased uptake that are particularly suspicious for bone metastases. Increased uptake at lateral aspect of right six th rib corresponds to a heterogeneously sclerotic lesion in that location on CT of abdomen and pelvis of 07/21/2020. Although a healing fracture could have this appearance, it would be unusual for a single healing rib fracture without any other healing rib fractures at adjacent levels. There is an ill-defined patchy region of increased uptake in the skull at the left frontal bone. Photopenic defects at the bilateral knees represent metallic hardware. There is increased uptake in t he bone surrounding the hardware. No definite foci of increased uptake are visualized involving the well-circumscribed very hyperdense small sclerotic osseous lesions in the lower lumbar spine, sacrum, and a moderate-sized such lesion in the right iliac bone. IMPRESSION: 1. Osteoarthrosis and spondylosis. 2. Increased uptake at a single focus at right lateral sixth rib. This could be an osseous metastasis . 3. Focus of increased uptake in the skull, left frontal bone. Recommend noncontrast CT of brain with attention to calvarium. 4. Status post bilateral total knee replacement arthroplasty, with increased bone uptake around the h ardware. 5. The rest of the small sclerotic skeletal lesions found on recent CT, do not definitely have increa sed uptake. It is possible that at least some of them could represent bone islands, but skeletal metastasis is still a possibility, given the right rib lesion. Follow-up CT of abdomen and pelvis is recommended in 6 months. Although IV contrast is not necessary to follow these particular osseous lesions, IV contrast would be useful in order to increase sensitivity for detection of pathology of c ontents of abdominal cavity and pelvic cavity, unless there are contraindications.
[2020-07-24] MEDS: Terazosin HCl 5 MG CAP PO SCH (22:12)
[2020-07-25] MEDS: HYDROmorphone 10 mg/100 ml CADD IVPB PRN ×2 (02:19→17:32)
--- NOTE | 2020-07-25 08:03 | PRG ---
DATE OF SERVICE: I saw Tyler Rosario in his hospital room this morning. The sclerotic lesions in the spine and sacrum as well as the pelvis did not light up on his bone scan, which is good news. There were 2 spots that were concerning to me, both correspond with some sclerotic bone in the right 6th rib and the anterior iliac crest on the left. These are not the very dense bone seen on his CAT scan, but areas of less density that need followup. He could need biopsy if they are concerning to the primary team, primary care physician, or Oncology. With regard to the radiculopathy which is a separate issue, I offered him surgery. There is time on the surgical schedule tomorrow afternoon. I consented him to surgery yesterday. I do not see any fevers recorded overnight. Blood pressures have been stable. He still has quadriceps and anterior tib weakness on the left and radiating pain down the leg. This is from intervertebral disk herniation. The patient should be n.p.o. overnight, and we should order antibiotics to be sent with the patient to the operating room. He should sign a consent. Anesthesia should be made aware, and he needs to be put on the schedule. We will make sure he has up-to-date labs and coags. Job ID: [id number] [facility]
[2020-07-25] MEDS: Dexamethasone 4 mg/ml Vial SLOW IVP SCH (09:00)
[2020-07-25] MEDS: Enoxaparin Sodium 40 MG/0.4 ML SYRINGE SC SCH (09:00)
[2020-07-25] MEDS: tiZANidine HCl 4 MG TAB PO SCH ×2 (09:01→21:49)
[2020-07-25] MEDS: Venlafaxine HCl XR 75 MG CAP PO SCH (09:01)
[2020-07-25] MEDS: Lisinopril 5 MG TAB PO SCH (09:01)
[2020-07-25] MEDS: busPIRone HCl 5 MG TAB PO SCH (09:01)
[2020-07-25] MEDS: Pregabalin 50 MG CAP PO SCH ×3 (09:01→22:28)
[2020-07-25] MEDS: Polyethylene Glycol 3350 17 GM Packet PO SCH ×2 (09:02→21:56)
[2020-07-25] MEDS: Finasteride 5 MG TAB PO SCH (09:03)
[2020-07-25] MEDS ORDERED: CEFAZOLIN 2 GM in Premix Bag 1 BAG IVPB SCH (09:45)
--- NOTE | 2020-07-25 13:38 | RAD ---
EXAM: XR Lumbar Spine 2 Or 3 View PROVIDED CLINICAL HISTORY: Lumbar laminectomy and discectomy COMPARISON: None FINDINGS: 5 nonrib-bearing lumbar-type vertebral bodies are demonstrated. There is grade 1 anterolisthesis of L 4 on L5. There is no evidence for abnormal translational motion with flexion and extension. Vertebral body heights appear preserved. Disc space narrowing and endplate degenerative changes are d emonstrated. There is a sclerotic lesion demonstrated within the L3 vertebral body as well as within L1. Sclerotic lesion also overlies the pelvis on the lateral view. IMPRESSION: 1. Degenerative change without evidence for abnormal translational motion. 2. Sclerotic lesions suspicious for metastatic disease. Correlate with recently performed bone scan.
--- NOTE | 2020-07-25 13:48 | PDOC.HOSPP ---
- Subjective Encounter Date: 07/25/20 Subjective: in pain as he had some imaging done and got moved a lot. - Objective Vital Signs & Weight: Vital Signs (12 hours) Temp Pulse Resp BP Pulse Ox 07/25/20 11:50 98.5 F 67 20 99/57 L 96 07/25/20 08:00 98.8 F 59 L 20 119/61 98 07/25/20 04:25 98.1 F 73 16 128/61 Weight Weight 250 lb I&O: 07/24/20 07/25/20 07/26/20 06:59 06:59 06:59 Intake Total 720 Output Total 796 6557 Balance -700 -0967 Result Diagrams: 07/22/20 06:24 07/22/20 06:24 Hospitalist ROS - Medication Medications: Active Medications Generic Name Dose Route Start Last Admin Trade Name Freq PRN Reason Stop Dose Admin Buspirone HCl 15 mg 07/22/20 09:00 07/25/20 09:01 Buspirone Hcl 5 Mg Tab PO 15 mg DAILY TERRELL Administration Dexamethasone 6 mg 07/22/20 09:00 07/25/20 09:00 Dexamethasone 4 Mg/Ml Vial SLOW IVP 6 mg DAILY TERRELL Administration Enoxaparin Sodium 40 mg 07/22/20 09:00 07/25/20 09:00 Enoxaparin Sodium 40 Mg/0.4 Ml Syringe SC 40 mg 0900 TERRELL Administration Finasteride 5 mg 07/22/20 09:00 07/25/20 09:03 Finasteride 5 Mg Tab PO 5 mg DAILY TERRELL Administration Hydromorphone HCl 0 mg 07/22/20 15:56 07/25/20 02:19 Hydromorphone 10 Mg/100 Ml Cadd IVPB 10 mg INF PRN Administration Pain Ketorolac Tromethamine 15 mg 07/21/20 17:12 07/23/20 00:37 Ketorolac Tromethamine 30 Mg/Ml Vial IVP 07/26/20 17:13 15 mg Q6H PRN Administration Pain Lisinopril 5 mg 07/22/20 09:00 07/25/20 09:01 Lisinopril 5 Mg Tab PO 5 mg DAILY TERRELL Administration Pantoprazole Sodium 40 mg 07/22/20 09:00 07/25/20 09:01 Pantoprazole 40 Mg Tab PO 40 mg DAILY TERRELL Administration Polyethylene Glycol 17 gm 07/22/20 09:00 07/25/20 09:02 Polyethylene Glycol 3350 17 Gm Packet PO Not Given BID TERRELL Pregabalin 100 mg 07/22/20 09:00 07/25/20 09:01 Pregabalin 50 Mg Cap PO 100 mg TID TERRELL Administration Sodium Chloride 10 ml 07/21/20 14:30 07/22/20 03:52 Flush - Normal Saline 10 Ml Syringe IVF 10 ml Q12HR PRN Administration Saline Flush Terazosin HCl 10 mg 07/22/20 21:00 07/24/20 22:12 Terazosin Hcl 5 Mg Cap PO 10 mg HS TERRELL Administration Tizanidine HCl 4 mg 07/22/20 09:00 07/25/20 09:01 Tizanidine Hcl 4 Mg Tab PO 4 mg BID TERRELL Administration Venlafaxine HCl 75 mg 07/22/20 09:00 07/25/20 09:01 Venlafaxine Hcl Xr 75 Mg Cap PO 75 mg DAILY TERRELL Administration - Exam General Appearance: awake alert Eye: PERRL, anicteric sclera ENT: normocephalic atraumatic, no oropharyngeal lesions Neck: supple, symmetric, no JVD Heart: RRR, no murmur, no gallops, no rubs Respiratory: CTAB, no wheezes Gastrointestinal: soft, non-tender Extremities: no cyanosis, no clubbing Hosp A/P (1) Intractable low back pain Code(s): M54.5 - LOW BACK PAIN Status: Acute (2) Hypertension Code(s): I10 - ESSENTIAL (PRIMARY) HYPERTENSION Status: Chronic (3) Metastasis Code(s): C79.9 - SECONDARY MALIGNANT NEOPLASM OF UNSPECIFIED SITE Status: Suspected Qualifiers: Area of secondary neoplastic involvement: bone Qualified Code(s): C79.51 - Secondary malignant neoplasm of bone - Plan HE had the MRI and the results were noted, nuclear scan could not be done but will be tomorrow. I will touch base with Neurosurgery in am, until then continue with pain control. Plan for today 07/24 continue with pain control He is awaiting his bone scan to be done today. For OR or Thursday. Plan for today 07/25 bone scan result reviewed, there is still some possibility of finding that could indicate bone mets, I will consult Oncology for further input, called and updated. Patient to OR in am.
--- NOTE | 2020-07-25 14:42 | HP ---
REASON FOR HISTORY AND PHYSICAL: Surgery on 07/26/2020 at 1:00 p.m. HISTORY OF PRESENT ILLNESS: Mr. Rosario is a 69-year-old gentleman who presented to the emergency room for an intractable lower back pain. This has been going on for 2 weeks. He has been unable to stand or walk due to the pain radiating down his left leg. Pain radiates down the top of his left foot. Right leg is completely asymptomatic. MRI has been done and indicates a herniated lumbar disk causing severe canal stenosis at L3-L4 and left lateral stenosis. There is some L4-L5 right foraminal stenosis. He has elected to go forward with surgery tomorrow. He denies any bladder or bowel dysfunction. REVIEW OF SYSTEMS: CONSTITUTIONAL: Denies fever or chills. ENT: Denies change in vision or hearing. CARDIAC: Denies chest pain, shortness of breath, diaphoresis. PULMONARY: Denies shortness of breath, cough, hemoptysis. GI: Denies abdominal pain, nausea, vomiting, diarrhea, change in stool formation and consistency. : Denies trouble with urination, frequency of urination, bloody urine. SKIN: Denies skin rash, bruising, bleeding, skin masses. MUSCULOSKELETAL: As per history of present illness. NEUROLOGIC: As per history of present illness. PSYCHOLOGIC: As per history of present illness. PAST MEDICAL HISTORY: BPH. PAST SURGICAL HISTORY: 1. In 1990, neck surgery. 2. In 1985, Dr. Grant, lower back. 3. In 1994, in [place], unknown doctor. 4. In 1990, neck, unknown doctor. 5. In 1997, Dr. Palafox in [place], lower back. 6. In 2012, Dr. Logan, neck posterior. 7. Bilateral knee surgery, unknown doctor. SOCIAL HISTORY: The patient denies alcohol use, illicit drugs, or nicotine. CURRENT MEDICATIONS: 1. Morphine 50 mg. 2. [place] 10 mg/325 mg. 3. Gabapentin 400 mg. 4. Tizanidine 4 mg. 5. Desvenlafaxine 50 mg. 6. Zolpidem 10 mg. 7. Lisinopril 5 mg. 8. Finasteride 5 mg. 9. Buspirone 15 mg. 10. Terazosin 10 mg. 11. Prednisone 5 mg, those are current home medications. ALLERGIES: CODEINE. PHYSICAL EXAMINATION: VITAL SIGNS: Blood pressure 128/78, pulse 88, temperature 97.8. HEENT: Pupils are equal. Extraocular movements are intact. NECK: Soft, supple. No masses are noted. Range of motion is intact and nonpainful. NEUROLOGIC: Awake, alert, and oriented x3. Memory, attention, fund of knowledge is normal. Cranial nerves are grossly intact. EXTREMITIES: He has good strength in the iliopsoas, quadriceps, hamstrings, anterior tib. There is reduced strength in his EHL and gastrocnemius. There is L5 dermatomal sensory loss. Reflexes are symmetric. Toes are downgoing. IMAGIN. MRI, Schmorl node at L2. 2. L3-L4 herniated lumbar disk, severe canal and left foraminal stenosis. 3. L4-L5 right foraminal stenosis. 4. X-ray of the L-spine flexion-extension: pending. ASSESSMENT: 1. Left Lumbar radiculopathy. 2. Lumbar herniated nucleus pulposus. PLAN: 1. Lumbar laminectomy, diskectomy and foraminotomy. 2. X-rays L-spine, flexion-extension. 3. Anesthesia clearance. 4. Preop labs, CBC, PT/PTT. INFORMED CONSENT: We discussed the indications, risks, benefits, alternatives, and expected results from surgery. The risks discussed included, but were not limited to, bleeding, infection, CSF leak, nerve damage, weakness, incontinence, cauda equina injury, arachnoiditis, paralysis, ventilator dependency, wheelchair dependency, loss of vision, cardiopulmonary complications of anesthesia, or . Long-term complications discussed and included, but were not limited to spinal instability and future surgery. He understands the risks and is willing to proceed. Job ID: [id number] [facility]
--- NOTE | 2020-07-25 15:37 | CON ---
DATE OF CONSULTATION: REASON FOR CONSULTATION: Rib lesion. HISTORY OF PRESENT ILLNESS: Mr. Rosario is a 69-year-old gentleman with past medical history of multiple back surgeries, who presented to the emergency room with intractable back pain. He underwent a CT scan of his abdomen and pelvis without contrast. There were sclerotic bone lesions throughout, which was worrisome for metastatic disease. He then underwent a lumbar spine MRI, which showed disk extrusion and protrusion. He had a bone scan performed. There was no foci of asymmetrically increased intake that were suspicious for bone mets. There was increased uptake in the lateral aspect of the right 6th rib, which corresponded with one of the sclerotic lesions on CT. The radiologist felt this could be a healing fracture, but also could be metastatic lesion. There was one other area of increased uptake in the skull. All other areas seen on CT scan were consistent with degenerative changes. The patient has been seen by Neurosurgery and is planning on back surgery tomorrow. His only complaint at this time is back pain. PAST MEDICAL HISTORY: BPH. PAST SURGICAL HISTORY: He has had multiple surgeries including neck, low back, another neck, another low back, another posterior neck, and bilateral knee surgeries. ALLERGIES: TO CODEINE. HOME MEDICATIONS: 1. Ambien. 2. BuSpar. 3. Desvenlafaxine. 4. Finasteride. 5. Hytrin. 6. Lisinopril. 7. Lyrica. 8. Morphine IR. 9. Heaters. 10. Tizanidine. FAMILY HISTORY: Brother had lung cancer, was a smoker. He had another brother with a brain tumor. SOCIAL HISTORY: . No alcohol, tobacco, or illicit drug use. REVIEW OF SYSTEMS: A 10-point review of systems is negative except for noted in HPI. PHYSICAL EXAMINATION: VITAL SIGNS: Temperature is 98.5, pulse is 67, respiratory rate 20, blood pressure is 99/57, and he is 96% on room air. GENERAL: A well-developed, well-nourished male, in no acute distress. HEENT: Normocephalic and atraumatic. Pupils are equal and reactive to light. NECK: Supple. CV: Regular rate and rhythm. LUNGS: Clear. ABDOMEN: Soft. PERTINENT LABORATORY DATA AND X-RAYS: WBCs are 7.8, hemoglobin 11.7, hematocrit 36.0, and platelet count is 173,000. He has 82% neutrophils and 10% lymphocytes. Sodium 135, potassium 4.3, chloride 101, CO2 is 25, BUN is 16, creatinine 1.26, and calcium 8.9. Bilirubin 0.3, AST is 12, ALT is 18, alkaline phosphatase is 61, serum total protein 6.7, albumin 3.3, and globulin 3.4. PSA is 1.59. Urine negative. COVID PCR negative. Radiology per HPI. ASSESSMENT: 1. Radiculopathy. 2. Increased uptake on bone scan of the right 6th rib and left frontal bone. DISCUSSION: The patient has been prepped for neurosurgery tomorrow. He has no evidence of any primary malignancy on CT scan. A very small lesion on his rib and possibly on his skull that could be further evaluated in the outpatient setting. His PSA is normal. I will check a serum protein electrophoresis to rule out myeloma. Further workup can be done in the outpatient setting by his primary care. Thank you for the consult. Job ID: [id number]
[2020-07-25] MEDS: Terazosin HCl 5 MG CAP PO SCH (21:49)
[2020-07-25] MEDS: Zolpidem Tartrate 5 MG TAB PO PRN (23:55)
[2020-07-26 06:29] LABS: Hemoglobin 11.8 g/dL (14.0-18.0); Mean Corpuscular HGB CONC 34.8 g/dL (32.0-36.0); Mean Corpuscular Hemoglobin 31.9 pg (27.0-31.0); Mean Corpuscular Volume 91.6 fL (78.0-98.0); Platelet Count 162 thou/uL (130-400); RBC Distribution Width 11.7 % (11.5-14.5); White Blood Cell (WBC) Count 7.6 thou/uL (4.8-10.8)
[2020-07-26 06:35] LABS: INR-International Normal Ratio 1.1; PTT 25.7 sec (22.9-36.1); Prothrombin Time 14.2 sec (12.0-14.7)
[2020-07-26] MEDS: Dexamethasone 4 mg/ml Vial SLOW IVP SCH (07:41)
[2020-07-26] MEDS: tiZANidine HCl 4 MG TAB PO SCH ×2 (07:41→20:05)
[2020-07-26] MEDS: Pregabalin 50 MG CAP PO SCH ×3 (07:41→20:05)
[2020-07-26] MEDS: Finasteride 5 MG TAB PO SCH (07:53)
[2020-07-26] MEDS: busPIRone HCl 5 MG TAB PO SCH (07:53)
[2020-07-26] MEDS: Lisinopril 5 MG TAB PO SCH (07:53)
[2020-07-26] MEDS: Enoxaparin Sodium 40 MG/0.4 ML SYRINGE SC SCH (07:53)
[2020-07-26] MEDS: Polyethylene Glycol 3350 17 GM Packet PO SCH ×2 (07:54→20:06)
[2020-07-26] MEDS: Venlafaxine HCl XR 75 MG CAP PO SCH (07:54)
--- NOTE | 2020-07-26 09:27 | PDOC.HOSPP ---
- Subjective Encounter Date: 07/26/20 Subjective: feeling better. - Objective Vital Signs & Weight: Vital Signs (12 hours) Temp Pulse Resp BP Pulse Ox 07/26/20 08:00 98.1 F 59 L 20 133/90 97 07/26/20 07:53 58 L 07/26/20 04:20 98.1 F 58 L 18 169/82 H 98 07/26/20 00:56 97.6 F 66 16 167/77 H 97 Weight Weight 250 lb I&O: 07/25/20 07/26/20 07/27/20 06:59 06:59 06:59 Intake Total 720 680 Output Total 0886 6351 Balance -1125 -6030 Result Diagrams: 07/26/20 06:10 07/22/20 06:24 Hospitalist ROS - Medication Medications: Active Medications Generic Name Dose Route Start Last Admin Trade Name Freq PRN Reason Stop Dose Admin Buspirone HCl 15 mg 07/22/20 09:00 07/26/20 07:53 Buspirone Hcl 5 Mg Tab PO Not Given DAILY TERRELL Dexamethasone 6 mg 07/22/20 09:00 07/26/20 07:41 Dexamethasone 4 Mg/Ml Vial SLOW IVP 6 mg DAILY TERRELL Administration Enoxaparin Sodium 40 mg 07/22/20 09:00 07/26/20 07:53 Enoxaparin Sodium 40 Mg/0.4 Ml Syringe SC Not Given 0900 TERRELL Finasteride 5 mg 07/22/20 09:00 07/26/20 07:53 Finasteride 5 Mg Tab PO Not Given DAILY TERRELL Hydromorphone HCl 0 mg 07/22/20 15:56 07/25/20 17:32 Hydromorphone 10 Mg/100 Ml Cadd IVPB 10 mg INF PRN Administration Pain Ketorolac Tromethamine 15 mg 07/21/20 17:12 07/23/20 00:37 Ketorolac Tromethamine 30 Mg/Ml Vial IVP 07/26/20 17:13 15 mg Q6H PRN Administration Pain Lisinopril 5 mg 07/22/20 09:00 07/26/20 07:53 Lisinopril 5 Mg Tab PO Not Given DAILY TERRELL Pantoprazole Sodium 40 mg 07/22/20 09:00 07/26/20 07:54 Pantoprazole 40 Mg Tab PO Not Given DAILY TERRELL Polyethylene Glycol 17 gm 07/22/20 09:00 07/26/20 07:54 Polyethylene Glycol 3350 17 Gm Packet PO Not Given BID TERRELL Pregabalin 100 mg 07/22/20 09:00 07/26/20 07:41 Pregabalin 50 Mg Cap PO 100 mg TID TERRELL Administration Sodium Chloride 10 ml 07/21/20 14:30 07/22/20 03:52 Flush - Normal Saline 10 Ml Syringe IVF 10 ml Q12HR PRN Administration Saline Flush Terazosin HCl 10 mg 07/22/20 21:00 07/25/20 21:49 Terazosin Hcl 5 Mg Cap PO 10 mg HS TERRELL Administration Tizanidine HCl 4 mg 07/22/20 09:00 07/26/20 07:41 Tizanidine Hcl 4 Mg Tab PO 4 mg BID TERRELL Administration Venlafaxine HCl 75 mg 07/22/20 09:00 07/26/20 07:54 Venlafaxine Hcl Xr 75 Mg Cap PO Not Given DAILY TERRELL Zolpidem Tartrate 5 mg 07/22/20 15:56 07/25/20 23:55 Zolpidem Tartrate 5 Mg Tab PO 5 mg HSPRN PRN Administration Insomnia - Exam General Appearance: awake alert Eye: PERRL, anicteric sclera ENT: normocephalic atraumatic, no oropharyngeal lesions Neck: supple, symmetric, no JVD, no thyromegaly Heart: RRR, no murmur, no gallops, no rubs Respiratory: CTAB, no wheezes, no rales Gastrointestinal: soft, non-tender, non-distended Extremities: no cyanosis, no clubbing, no edema Skin: normal turgor Neurological: cranial nerve grossly intact Musculoskeletal: normal tone, normal strength Psychiatric: normal affect, normal behavior Hosp A/P (1) Intractable low back pain Code(s): M54.5 - LOW BACK PAIN Status: Acute (2) Hypertension Code(s): I10 - ESSENTIAL (PRIMARY) HYPERTENSION Status: Chronic (3) Metastasis Code(s): C79.9 - SECONDARY MALIGNANT NEOPLASM OF UNSPECIFIED SITE Status: Suspected Qualifiers: Area of secondary neoplastic involvement: bone Qualified Code(s): C79.51 - Secondary malignant neoplasm of bone - Plan HE had the MRI and the results were noted, nuclear scan could not be done but will be tomorrow. I will touch base with Neurosurgery in am, until then continue with pain control. Plan for today 07/24 continue with pain control He is awaiting his bone scan to be done today. For OR or Thursday. Plan for today 07/25 bone scan result reviewed, there is still some possibility of finding that could indicate bone mets, I will consult Oncology for further input, called and updated. Patient to OR in am. plan for today 07/26 Hem-onc consult noted, no evidence of primary malignancy so far, serum protein electrophoresis ordered, further workup as outpatient. He is going for surgery today. For the past 12 h or so his blood pressure was higher then previously, he says h e is in a lot of pain, will continue to monitor for now, I will only change the parameters for administration of Hydralazine.
[2020-07-26] MEDS ORDERED: hydrALAZINE 20 MG/ML VIAL SLOW IVP PRN (09:28)
[2020-07-26] MEDS ORDERED: CEFAZOLIN 2 GM in Premix Bag 1 BAG IVPB SCH (09:43)
[2020-07-26] MEDS ORDERED: Lidocaine 1% PF 5 ML VIAL ONE (09:59)
[2020-07-26] MEDS ORDERED: PROPOFOL 200 MG/20 ML VIAL ONE (09:59)
[2020-07-26] MEDS ORDERED: ePHEDrine 50 MG/ML VIAL ONE (09:59)
[2020-07-26] MEDS ORDERED: PHENYLEPHRINE-NS 100 MCG/ML 10 ML SYRINGE ONE (09:59)
[2020-07-26] MEDS ORDERED: Glycopyrrolate 0.2 MG/ML 5 ML SYRINGE ONE (09:59)
[2020-07-26] MEDS ORDERED: Rocuronium Bromide 10 MG/ML (10ML VIAL) ONE (09:59)
[2020-07-26] MEDS ORDERED: Calcium Chloride 1 GM/10 ML Abboject SYRINGE ONE (09:59)
[2020-07-26] MEDS: HYDROmorphone 10 mg/100 ml CADD IVPB PRN (10:45)
[2020-07-26] MEDS ORDERED: EPINEPHrine 1 MG/ML AMP ONE (11:31)
[2020-07-26] MEDS ORDERED: Bupivacaine PF 0.5% 30 ML VIAL ONE (11:31)
[2020-07-26] MEDS ORDERED: Thrombin 5000 UNITS/5 ML VIAL ONE (11:32)
[2020-07-26] MEDS ORDERED: Midazolam HCl 2 mg/2 ml Vial ONE (11:35)
[2020-07-26] MEDS ORDERED: Fentanyl 100 MCG/2 ML VIAL ONE (11:49)
[2020-07-26] MEDS ORDERED: HYDROmorphone 2 MG/ML VIAL ONE (15:14)
[2020-07-26] MEDS ORDERED: Ondansetron HCl/PF 4 MG/2 ML Vial IVP PRN (15:16)
[2020-07-26] MEDS ORDERED: HYDROmorphone 2 MG/ML VIAL SLOW IVP PRN (15:16)
[2020-07-26] MEDS ORDERED: Promethazine HCl 25 MG/ML VIAL IM PRN ×2 (15:16→15:38)
[2020-07-26] MEDS ORDERED: Promethazine HCl 25 MG/ML VIAL SLOW IVP PRN (15:16)
[2020-07-26] MEDS ORDERED: Ondansetron PF 4 MG/2 ML Vial IVP PRN (15:38)
[2020-07-26] MEDS ORDERED: Naloxone HCl 0.4 mg/ml Vial IV PRN (15:38)
[2020-07-26] MEDS ORDERED: diphenhydrAMINE 50 MG/ML VIAL IM PRN (15:38)
[2020-07-26] MEDS ORDERED: diphenhydrAMINE 25 MG CAP PO PRN (15:38)
[2020-07-26] MEDS ORDERED: Zolpidem Tartrate 5 MG TAB PO PRN (15:38)
[2020-07-26] MEDS ORDERED: diphenhydrAMINE 50 MG/ML VIAL IVP PRN (15:38)
[2020-07-26] MEDS ORDERED: Communication Order-Pharmacy FS PRN (15:45)
--- NOTE | 2020-07-26 17:04 | OP ---
DATE OF PROCEDURE: 07/26/2020 INSPECTOR SEMICONDUCTOR WAFER,: Ivan Almaguer PA-C. PREOPERATIVE INDICATION: Treat pain and prevent neurological deterioration. PREOPERATIVE DIAGNOSES: 1. Left L3-L4 intervertebral disk herniation with left L4 radiculopathy. 2. Intractable pain. 3. Inability to walk. POSTOPERATIVE DIAGNOSES: 1. Left L3-L4 intervertebral disk herniation with left L4 radiculopathy. 2. Intractable pain. 3. Inability to walk. PROCEDURES PERFORMED: 1. Reopening lumbar incision with repeat L3-L4 surgery. 2. L3-L4 laminectomy with medial facetectomy and foraminotomy. 3. Left L3-L4 microdiskectomy. 4. Operating microscope. PREOPERATIVE MEDICATION: Ancef 2 g IV. DRAIN NUMBER: Zero. DRAIN TYPE: None. DESCRIPTION OF PROCEDURE: The patient was brought to the operating room. General endotracheal anesthesia was induced. The patient was positioned prone on the operating table with his chest and hips supported by gel-filled chest rolls. A lateral fluoro radiograph was used to plan our incision. The lumbar skin was sterilely prepped and draped. We opened the superior half of his previous incision and controlled bleeding with bipolar and monopolar cautery. We used monopolar cautery to dissect down through the subcutaneous tissues to the thoracodorsal fascia. We incised the fascia in the midline and reflected the paraspinal muscles off the spinous process and lamina of L3 and L4. A self-retaining retractor was placed. A lateral fluoro radiograph confirmed the level upon which we were operating. We then removed the L3 spinous process and thinned the lamina. Interestingly, previous surgeons had removed the inferior articular process of L3 on the left side. They completed their facetectomy and approached to the disk through that bone removal. We found the left inferior quadrant of the lamina and the facet joint completely gone. Nonetheless, we performed our laminectomy with Kerrison rongeurs. We widened on both sides until we could palpate the pedicles. We ensured the right lateral recess is well decompressed as well as the L4 nerve root down to its foramen. We spent most of our time on the left side, however. The operative microscope was brought into the field. Under microscopic magnification and using microsurgical techniques, we carefully dissected out the L3 foramen. There was significant scar tissue here. There was no bone over the foramen from his previous surgery. We identified the L3 nerve root medial to the L3 pedicle and followed it out the foramen, ensuring that nerve root was well decompressed, even though it was covered in scar tissue posteriorly. We identified the L4 nerve root and its foramen and pedicle, and between these 2 bony landmarks, we dissected through scar tissue, identifying the lateral edge of the thecal sac and we made our way down to the intervertebral disk at L3-L4 on the left side. We gently retracted the thecal sac medially under the microscope and immediately saw disk sequestration ventral to the dura. We gently incised the lateral aspect of this and multiple fragments of wet disk were removed. This fresh disk was significantly hydrated. Multiple fragments removed in the sequestered portion. This had emanated from the inferior edge of the anulus fibrosus from the hole, through which had herniated was probed. This was quite small and there were no loose fragments of disk. We did not open this any farther than it had already opened. We removed all loose fragments of disk from the ventral epidural space and the dura was well decompressed and there was no more stretch in the L4 or other traversing nerve roots on the left side. We passed a ball probe out the L3 and L4 foramina with those nerve roots and there was no compression. We irrigated with bacitracin irrigation. We waxed the bone edges. We infused local anesthetic in the paraspinal muscles. We closed the wound in anatomical layers after treating it with vancomycin powder. We applied a sterile dressing. This was a clean case, no contamination. Job ID: [id number]
[2020-07-26 18:39] LABS: A/G Ratio 1.1 (0.7-1.7); Albumin 3.2 g/dL (2.9-4.4); Alpha 1 0.2 g/dL (0.0-0.4); Alpha 2 0.7 g/dL (0.4-1.0); Beta 0.6 g/dL (0.7-1.3); Gamma 1.4 g/dL (0.4-1.8); Globulin, Total 2.9 g/dL (2.2-3.9); M-Spike 1.3 g/dL (Not Observed)
[2020-07-26] MEDS: CEFAZOLIN 2 GM in Premix Bag 1 BAG IVPB SCH (20:04)
[2020-07-26] MEDS: Terazosin HCl 5 MG CAP PO SCH (20:05)
--- NOTE | 2020-07-26 23:38 | CT ---
Exam: Head CT without contrast HISTORY: Code green. Possible seizure. Recent laminectomy. COMPARISON: none FINDINGS: Hemorrhage: No intraparenchymal hemorrhage or extra-axial hematoma. Brain parenchyma: Cortical coello-white matter differentiation is preserved. No mass effect or midline shift. Basilar cisterns are patent. Ventricular system: Ventricles and sulci are patent and symmetric. Calvarium: Intact. Sinuses and mastoid air cells: Right maxillary sinus mucus retention cyst IMPRESSION: No acute intracranial process.
[2020-07-27 00:05] LABS: #Lymphocytes 0.7 thou/uL (1.20-3.40); #Monocytes 0.4 thou/uL (0.11-0.59); #Neutrophils 10.2 thou/uL (1.40-6.50); %Eosinophils 0.2 % (0.0-10.0); %Lymphocytes 5.9 % (21.0-51.0); %Monocytes 3.9 % (0.0-10.0); Hemoglobin 12.1 g/dL (14.0-18.0); Mean Corpuscular Volume 91.4 fL (78.0-98.0); Mean Platelet Volume 7.6 fL (7.4-10.4); Platelet Count 192 thou/uL (130-400); RBC Distribution Width 11.8 % (11.5-14.5); Red Blood Cell (RBC) Count 3.78 mill/uL (4.70-6.10); White Blood Cell (WBC) Count 11.3 thou/uL (4.8-10.8)
[2020-07-27 00:11] LABS: Anion Gap 16 mmol/L (10-20); BUN (Urea Nitrogen) 24 mg/dL (8.4-25.7); Calc. Creatinine Clearance 86 mL/min (70-130); Carbon Dioxide 29 mmol/L (23-31); Chloride 99 mmol/L (98-107); Glucose 141 mg/dL (80-115); Potassium 4.5 mmol/L (3.5-5.1); Sodium 139 mmol/L (136-145)
[2020-07-27] MEDS: CEFAZOLIN 2 GM in Premix Bag 1 BAG IVPB SCH ×2 (03:37→11:05)
[2020-07-27 08:01] VITALS: TEMP 98.6
[2020-07-27] MEDS: Pregabalin 50 MG CAP PO SCH (09:10)
[2020-07-27] MEDS: tiZANidine HCl 4 MG TAB PO SCH (09:10)
[2020-07-27] MEDS: Dexamethasone 4 mg/ml Vial SLOW IVP SCH (09:11)
[2020-07-27] MEDS: Lisinopril 5 MG TAB PO SCH (09:11)
[2020-07-27] MEDS: Finasteride 5 MG TAB PO SCH (09:11)
[2020-07-27] MEDS: Venlafaxine HCl XR 75 MG CAP PO SCH (09:11)
[2020-07-27] MEDS: Enoxaparin Sodium 40 MG/0.4 ML SYRINGE SC SCH (09:11)
[2020-07-27] MEDS: Polyethylene Glycol 3350 17 GM Packet PO SCH (09:14)
[2020-07-27] MEDS: busPIRone HCl 5 MG TAB PO SCH (10:05)
[2020-07-27] MEDS ORDERED: Morphine IR Tab 15 MG TAB PO PRN (10:53)
[2020-07-27] MEDS ORDERED: HYDROcodone/Acetaminophen 10/325 mg Tablet PO PRN (10:54)
--- NOTE | 2020-07-27 11:03 | PRG ---
DATE OF SERVICE: 07/27/2020 I saw Mr. Rosario in his hospital room this morning. He is relaxing comfortably. He was found in his bed last night by nursing with a disconnected IV and blood on his bed sheets. He had vasovagal syncopal, and a code was called. CT examination of the brain was negative. Recovered and he is normal now. He is in no pain. He does not want pain medication. He would like to go home. I do not see any fevers recorded overnight. Blood pressures have been in the 120s to 130s. There is good neurological function in the left lower extremity. The quadriceps strength is improved. Anterior tib is normal. There is some residual numbness. Mr. Rosario has been in the hospital for quite some time. He had been in excruciating pain and required a RADIO STATION OPERATOR, but now he is pain-free. Wants to stop all his pain medication and he would like to go home. He does not want to be in the hospital anymore given the events of last night and I think that is a reasonable thing for him. We will have Physical Therapy ensure that he is safe for activities of daily living. He will be discharged. He will need followup in our clinic to check his incision in 2 weeks. He will need followup for lesions in the skeleton over time. The CT scan of the brain gave us a look at his skull, and after the bone scan shows a tiny bit of positivity in the left frontal area, this could represents a tiny sclerotic bony lesion inside the frontal sinus or a brown bruise from his fall in the bathtub about four weeks ago. Repeat bone scan is likely to be done at some point in another month. We will follow up the sclerotic spine lesions in our office along with following up the surgery we did on him to decompress and remove the intervertebral disk herniation. We went over wound care, activity restrictions, and followup. Job ID: [id number]
--- NOTE | 2020-07-27 11:17 | PRG ---
DATE OF SERVICE: 07/27/2020 SUBJECTIVE: Mr. Rosario is one day out from lumbar decompression. He has done well overnight. He has been out of bed this morning. He does not have any radiation of leg pain he had before surgery, but his back is sore. Among the electronic record vital signs I see a maximum temperature of 98.6 degrees Fahrenheit. Blood pressures have been between the 60s and 130s. I do not find any new deficits in the lower extremities. GENERAL: On exam today, he is awake and alert, in no acute distress. He has free active range of motion of all his extremities. No focal motor weakness. No reflex asymmetry. His incision is clean, dry, and intact. He is otherwise doing well and ambulating easily in the hallways and feels that he is ready to go home today. ASSESSMENT AND PLAN: We will plan to dismiss the patient home once he is safe for ADLs. I have discussed home care precautions with him. I offered him a muscle relaxer and some pain medications, but he declined these medications to be sent to his pharmacy. Job ID: [id number] [facility]
--- NOTE | 2020-07-27 13:56 | PDOC.MOPN ---
Interval History: patient pain free and going home today. - Vital Signs Vital Signs: Vital Signs (12 hours) Temp Pulse Resp BP Pulse Ox 07/27/20 08:00 98.6 F 61 20 138/69 97 07/27/20 03:37 98.2 F 74 18 125/64 95 Weight Weight 250 lb - Physical Exam General: Alert, Oriented x3, No acute distress HEENT: Atraumatic Lungs: Clear to auscultation Cardiovascular: Regular rate Abdomen: Normal bowel sounds Neurological: Normal speech - Labs Result Diagrams: 07/26/20 23:13 07/26/20 23:13 Lab results: Laboratory Results - last 24 hr 07/26/20 23:13: WBC 11.3 H, RBC 3.78 L, Hgb 12.1 L, Hct 34.5 L, MCV 91.4, MCH 32.0 H, MCHC 35.0, RDW 11.8, Plt Count 192, MPV 7.6, Neutrophils % 90.0 H, Lym phocytes % 5.9 L, Monocytes % 3.9, Eosinophils % 0.2, Basophils % 0.0, Neutrophils # 10.2 H, Lymphocytes # 0.7 L, Monocytes # 0.4, Eosinophils # 0.0, Basophils # 0.0 07/26/20 23:13: Sodium 139, Potassium 4.5, Chloride 99, Carbon Dioxide 29, Anion Gap 16, BUN 24, Creatinine 1.30, Estimated GFR (MDRD) 55, Glucose 141 H, Calcium 9.0 07/26/20 23:10: POC Glucose 141 H 07/25/20 15:23: Globulin 2.9, Albumin/Globulin Ratio 1.1, Nutxu-1-Pvusunlwh 0.2, Oetul-0-Yufsaihyu 0.7, Beta Globulins 0.6 L, Gamma Globulins 1.4, M-Kraig 1.3 H, PEP Note , PEP Interpretation , Total Protein (CELESTINO) 6.1, Albumin (CELESTINO) 3.2 Status: lab reviewed by me A/P - Problem (1) Monoclonal gammopathy of undetermined significance Current Visit: Yes Code(s): D47.2 - MONOCLONAL GAMMOPATHY Status: Acute - Plan Plan: 1. Patients M-spike slightly high at 1.3, Immunoglobulins normal 2. plan further lab including FLC, beta-2 microglobulin 3. Discussed with patient and he will follow-up in clinic for results. 4. Dicussed with Dr. Bermudez
[2020-07-27 13:58] VITALS: BP 89/51
--- NOTE | 2020-07-27 18:31 | DIS ---
DATE OF ADMISSION: 07/21/2020 DATE OF DISCHARGE: 07/27/2020 DISCHARGE DISPOSITION: Home. PRIMARY DISCHARGE DIAGNOSIS: The patient is status post L3-L4 laminectomy, medial facetectomy, and foraminotomy done on 07/26/[address] Borjas. SECONDARY DISCHARGE DIAGNOSES: Lower extremity weakness, , suspicion for MGUS. PROCEDURES DONE DURING HOSPITALIZATION: The patient has had L3-L4 laminectomy with medial facetectomy and foraminotomy and left L3-L4 microdiskectomy done by Dr. Borjas on 07/26/2020. Histopathology of the disk mass shows benign fibrous tissue and fibrocartilage consistent with disk material. No malignancy was identified. Lumbar spine MRI done on 07/23/2020 showed extruded disk on the left at L3-L4 with inferior extension and sequestered fragment seen in the anterior spinal canal on the left posterior to L4 vertebra resulting in severe central canal stenosis and bilateral foraminal stenosis at the L3-L4 level, broad-based bulge at L4-L5 with facet hypertrophy. Abdominal and pelvic CAT scan done on 07/21/2020 without contrast showed nonobstructing right renal calculus, sclerotic bone lesions throughout, worrisome for metastatic bone disease. Nuclear bone scan done showed findings of osteoarthrosis and spondylosis. Increased uptake at a single focus at the right lateral sixth rib. This could be an osseous metastasis. Focus of increased uptake was seen in the skull, left frontal bone. The rest of the small sclerotic skeletal lesions found on recent CT do not definitely have increased uptake. It is possible that at least some of them could represent bone islands, but skeletal metastasis is still a possibility given the right rib lesion. Followup CT of the abdomen and pelvis is recommended in [address] brain done on 07/26/2020 showed no acute intracranial process. IgG 1630, IgA 21, IgM 15, total protein 6.1, albumin 3.2. COVID-19 PCR was not detected on 07/21/2020. Protein electrophoreses showed at 1.3 g/dL, gamma globulins were 1.4, beta globulins were 0.6. PSA 1.59. BUN 24, creatinine 1.3, albumin 3.3, total serum protein is 6.7, globulin 3.4. Hemoglobin and hematocrit 12 and 34, platelet count 192, white count of 11, MCV is 91 with 90% neutrophils. PT/INR, PTT within normal limits. DISCHARGE MEDICATIONS: 1. Buspirone 15 mg p.o. daily. 2. Ambien 10 mg p.o. at bedtime. 3. Venlafaxine extended release 50 mg p.o. daily. 4. Finasteride 5 mg daily. 5. Terazosin 10 mg p.o. at bedtime. 6. Lisinopril 5 mg p.o. daily. 7. Lyrica 100 mg three times daily. 8. Morphine IR tablet 15 mg p.o. three times daily p.r.n. 9. Fate 10/325 mg one tablet p.o. q.6 hourly p.r.n. 10. Tizanidine 4 mg p.o. at bedtime. ALLERGIES: ALLERGIC TO CODEINE. DISCHARGE PLAN: The patient to follow up with his primary care physician, Dr. Hector Gonsalez at the [facility] in 1 week. He needs to follow up with Dr. Chay Olea for Oncology on 08/10/2020 at 8:30 a.m. The patient needs to follow up with Dr. Borjas as advised. BRIEF COURSE DURING HOSPITALIZATION: The patient initially got admitted on the 21 of July with complaints of intractable back pain and unable to mobilize with severe pain in his lower extremities. The patient has known history of chronic pain syndrome as well and was on morphine IR and high-dose Fate along with tizanidine at home. In view of this history, the patient has had multiple workups as described above; lumbar spine MRI, abdominal CAT scan findings, and bone scan findings. He has had consultation with Dr. Borjas for Neurosurgery. The patient had L3-L4 laminectomy done with relief of his lower back pain. He is wanting to go home today. The patient follows up with Dr. Jarrell[facility] [place] for his pain medications. He states he has adequate supply of morphine and Fate at home prior to discharge. He is cleared by Neurosurgery for discharge. During the process of his workup, the patient was found to have had sclerotic lesions in his CAT scan. Protein electrophoresis showed M spike. The patient likely has MGUS and will have outpatient followup with Dr. Chay Olea on the 22nd for further workup including likely bone marrow exam if needed. He will also have immunofixation and further workup including beta microglobulin and urine electrophoresis as well. He is hemodynamically stable and will be shortly discharged to home. Please note, I have seen and examined the patient on the day of discharge. Job ID: [id number]
[2020-07-28 17:37] LABS: Kappa Lambda Light Chain Ratio 10.29 (0.26-1.65); Kappa Light Chains 31.9 mg/L (3.3-19.4); Lambda Light Chain 3.1 mg/L (5.7-26.3)
[2020-07-30 17:13] LABS: IFE-Serum Interpretation Note: (.); IgA - Total IgA (Sendout) 21 mg/dL (61-437); Immunoglobulin - G (Sendout) 1557 mg/dL (603-1613); Immunoglobulin - M (Sendout) 14 mg/dL (20-172)
[2020-07-31 15:15] LABS: Beta-2-Microglobulin 1.8 mg/L (0.6-2.4)
== END 2020-07-27 15:35 | disposition home health service (06) | DRG 520 ==
LOC: ERS 10:51 → ERHOLD 13:33 → 3SE 19:42
PROVIDERS: ADMIT Internal Medicine; ATTEND Internal Medicine
PROC: 0SB20ZZ Excision of Lumbar Vertebral Disc, Open Approach (ICD-10-PCS; principal; 2020-07-26)
PROC: 01NB0ZZ Release Lumbar Nerve, Open Approach (ICD-10-PCS; 2020-07-26)
DX: M51.16 Intervertebral disc disorders with radiculopathy, lumbar region (principal); M48.061 Spinal stenosis, lumbar region without neurogenic claudication; D47.2 Monoclonal gammopathy; Z20.822 Contact with and (suspected) exposure to COVID-19; N40.0 Benign prostatic hyperplasia without lower urinary tract symptoms; E78.5 Hyperlipidemia, unspecified; F41.9 Anxiety disorder, unspecified; F32.9 Major depressive disorder, single episode, unspecified; E87.6 Hypokalemia; G89.4 Chronic pain syndrome; Z28.21 Immunization not carried out because of patient refusal; Z88.5 Allergy status to narcotic agent; Z79.899 Other long term (current) drug therapy
CPT/HCPCS: 36415; 36416; 70450; 72100; 72158; 74176; 76000; 78306; 80048; 80053; 81001; 82232; 83615; 83883; 84165; 84550; 85025; 85027; 85610; 85730; 86140; 86334; 87635; 88304; 93005; 96374; 96375; 96376; A9503; G0103; J0171; J0690; J1100; J1170; J1650; J1885; J2250; J2270; J2550; J2704; J3010; J3360; J3370; J3490; S0020; U0003

== ENCOUNTER 2023-04-30 14:25 | Outpatient (CLI) | payer OTHER | END 2023-04-30 14:26 | disposition home or self-care (01) | LOC: BICRAD 14:25 | PROVIDERS: ATTEND Nurse Practitioner Family | DX: M47.812 Spondylosis without myelopathy or radiculopathy, cervical region (principal); M54.6 Pain in thoracic spine; Z98.1 Arthrodesis status; Z98.890 Other specified postprocedural states | CPT/HCPCS: 72052; 72072 ==

== ENCOUNTER 2023-10-12 23:59 | Inpatient (IN) | payer MEDICARE, OTHER ==
[2023-10-13] MEDS ORDERED: Metoprolol Tartrate 5 MG (5 mL) VIAL ONE (00:13)
[2023-10-13] MEDS ORDERED: fentaNYL 50 mcg/mL 1 mL Vial ONE ×2 (00:17→00:21)
[2023-10-13] MEDS ORDERED: Ondansetron PF 4 MG/2 ML Vial ONE (00:20)
[2023-10-13 00:44] LABS: Bacteria/HPF None Seen HPF (None Seen); Bilirubin Negative (Negative); Blood, Urine Negative (Negative); CAUTI Indications for Culture Pelvic or flank pain; Clarity Clear (Clear); Glucose, Urine (Dipstick) Normal (Negative); Ketone, Urine Negative (Negative); Leukocyte Negative Leu/uL (Negative); Nitrite Negative (Negative); Protein, Urine (Dipstick) Negative (Neg-Trace); RBC/HPF 0-3 HPF (0-3); Specific Gravity, Urine 1.006 (1.002-1.036); Squamous Epithelial None Seen HPF (0-3); Urobilinogen Normal mg/dL (Less than 2); WBC/HPF 0-3 HPF (0-3); pH, Urine 5.5 (5.0-9.0)
[2023-10-13 00:46] LABS: Urine Culture Reflex No No
[2023-10-13 00:47] LABS: #Basophils 0.04 10x3/uL (0.0-0.2); %Basophils 0.6 % (0.0-1.0); %Lymphocytes 28.3 % (21.0-51.0); %Monocytes 7.3 % (0.0-10.0); %Neutrophils 58.5 % (42.0-75.0); Hematocrit 35.9 % (42.0-52.0); Hemoglobin 12.7 g/dL (14.0-18.0); Mean Corpuscular HGB CONC 35.4 g/dL (32.0-36.0); Mean Corpuscular Hemoglobin 32.1 pg (27.0-31.0); Mean Corpuscular Volume 90.7 fL (78.0-98.0); Mean Platelet Volume 9.6 fL (7.4-10.4); Platelet Count 186 10x3/uL (130-400); RBC Distribution Width 12.6 % (11.5-14.5); Red Blood Cell (RBC) Count 3.96 mill/uL (4.70-6.10)
[2023-10-13] MEDS ORDERED: Magnesium 2 GM/50 ML BAG (IN WATER) ONE (00:49)
[2023-10-13] MEDS ORDERED: Digoxin 0.5 MG/2 ML AMP ONE (00:49)
[2023-10-13 01:11] LABS: ALT (SGPT) 18 U/L (8-55); AST (SGOT) 20 U/L (5-34); Albumin 3.7 g/dL (3.4-4.8); Alkaline Phosphatase 61 U/L (40-110); Anion Gap 15 mmol/L (10-20); BUN (Urea Nitrogen) 17 mg/dL (8.4-25.7); Bilirubin, Total 0.3 mg/dL (0.2-1.2); Calc. Creatinine Clearance 0 mL/min (70-130); Calcium 8.8 mg/dL (7.8-10.44); Carbon Dioxide 23 mmol/L (23-31); Chloride 108 mmol/L (98-107); Estimated GFR 57; Globulin 3.5 g/dL (2.4-3.5); Glucose 109 mg/dL (83-110); Magnesium 1.9 mg/dL (1.6-2.6); Potassium 4.5 mmol/L (3.5-5.1); Protein, Total 7.2 g/dL (5.8-8.1); Sodium 141 mmol/L (136-145)
[2023-10-13 01:14] LABS: Troponin I Less than 0.010 ng/mL (< 0.028)
[2023-10-13] MEDS ORDERED: Aspirin Chewable 81 MG TAB ONE (03:14)
[2023-10-13] MEDS ORDERED: Ondansetron PF 4 MG/2 ML Vial IVP PRN (03:32)
[2023-10-13] MEDS: Sodium Chloride 0.9% 1,000 ML IV SCH (04:38)
[2023-10-13 05:49] LABS: Troponin I 0.012 ng/mL (< 0.028)
[2023-10-13] MEDS ORDERED: HYDROcodone/Acetaminophen 5/325 mg Tablet ONE (06:26)
[2023-10-13] MEDS: HYDROcodone/Acetaminophen 5/325 mg Tablet PO PRN (06:29)
[2023-10-13 07:18] LABS: Troponin I 0.018 ng/mL (< 0.028)
[2023-10-13] MEDS ORDERED: Morphine IR Tab 15 MG TAB PO PRN (08:33)
[2023-10-13] MEDS: Enoxaparin 40 MG (0.4 mL) SYRINGE SC SCH (09:30)
[2023-10-13] MEDS: Famotidine/PF 20 mg/2ml Vial SLOW IVP SCH (09:30)
[2023-10-13] MEDS: Pregabalin 50 MG CAP PO SCH (09:53)
[2023-10-13] MEDS ORDERED: Famotidine/PF 20 mg/2ml Vial ONE (09:54)
[2023-10-13] MEDS ORDERED: Enoxaparin 40 MG (0.4 mL) SYRINGE ONE (09:54)
[2023-10-13] MEDS: Finasteride 5 MG TAB PO SCH (10:17)
[2023-10-13 11:43] VITALS: BMI 35.5
[2023-10-13] MEDS ORDERED: Iopamidol 370 76% 100 ML VIAL ONE (14:18)
[2023-10-13] MEDS: FLU VACC QS2023(65UP)/MF59C/PF 60 MCG/0.5 ML SYRINGE IM ONE (16:26)
[2023-10-13] MEDS: Terazosin HCl 5 MG CAP PO SCH (19:57)
[2023-10-14 06:23] LABS: #Basophils 0.04 10x3/uL (0.0-0.2); %Basophils 0.8 % (0.0-1.0); %Eosinophils 5.7 % (0.0-10.0); %Lymphocytes 30.3 % (21.0-51.0); %Monocytes 7.2 % (0.0-10.0); %Neutrophils 55.8 % (42.0-75.0); Hematocrit 33.2 % (42.0-52.0); Hemoglobin 11.5 g/dL (14.0-18.0); Mean Corpuscular HGB CONC 34.6 g/dL (32.0-36.0); Mean Corpuscular Volume 92.5 fL (78.0-98.0); Mean Platelet Volume 9.6 fL (7.4-10.4); Platelet Count 163 10x3/uL (130-400); RBC Distribution Width 12.6 % (11.5-14.5); Red Blood Cell (RBC) Count 3.59 mill/uL (4.70-6.10)
[2023-10-14 06:49] LABS: Anion Gap 10 mmol/L (10-20); BUN (Urea Nitrogen) 10 mg/dL (8.4-25.7); Calc. Creatinine Clearance 96 mL/min (70-130); Carbon Dioxide 27 mmol/L (23-31); Cardiac Risk 5.3 (Less than 4.5); Chloride 107 mmol/L (98-107); Cholesterol 187 mg/dl (< 200 Desired); Estimated GFR 72; Glucose 92 mg/dL (83-110); HDL Cholesterol 35 mg/dL (>60 Neg Risk); LDL Cholesterol, Calculated 129 mg/dL; Potassium 4.1 mmol/L (3.5-5.1); Sodium 140 mmol/L (136-145); Triglycerides 115 mg/dL (Less than 150)
[2023-10-14] MEDS ORDERED: Regadenoson 0.4 MG/5 ML SYRINGE ONE (10:20)
[2023-10-14] MEDS: busPIRone HCl 5 MG TAB PO SCH (12:55)
[2023-10-14] MEDS: Lisinopril 20 MG TAB PO SCH (12:56)
[2023-10-14] MEDS: Venlafaxine HCl XR 75 MG CAP PO SCH (12:58)
[2023-10-14] MEDS: Atorvastatin Calcium 20 MG TAB PO SCH (20:28)
[2023-10-14] MEDS ORDERED: Zolpidem Tartrate 5 MG TAB PO SCH (21:00)
[2023-10-14] MEDS: Zolpidem Tartrate 5 MG TAB PO PRN (23:00)
[2023-10-15 05:08] LABS: #Basophils 0.04 10x3/uL (0.0-0.2); %Basophils 0.8 % (0.0-1.0); %Eosinophils 7.5 % (0.0-10.0); %Lymphocytes 31.8 % (21.0-51.0); %Monocytes 8.1 % (0.0-10.0); %Neutrophils 51.6 % (42.0-75.0); Hematocrit 33.3 % (42.0-52.0); Hemoglobin 11.5 g/dL (14.0-18.0); Mean Corpuscular HGB CONC 34.5 g/dL (32.0-36.0); Mean Corpuscular Hemoglobin 31.9 pg (27.0-31.0); Mean Corpuscular Volume 92.2 fL (78.0-98.0); Mean Platelet Volume 9.8 fL (7.4-10.4); Platelet Count 171 10x3/uL (130-400); RBC Distribution Width 12.6 % (11.5-14.5); Red Blood Cell (RBC) Count 3.61 mill/uL (4.70-6.10)
[2023-10-15 05:24] LABS: Anion Gap 10 mmol/L (10-20); BUN (Urea Nitrogen) 11 mg/dL (8.4-25.7); Calc. Creatinine Clearance 88 mL/min (70-130); Calcium 8.9 mg/dL (7.8-10.44); Carbon Dioxide 31 mmol/L (23-31); Chloride 104 mmol/L (98-107); Estimated GFR 65; Glucose 90 mg/dL (83-110); Magnesium 1.9 mg/dL (1.6-2.6); Potassium 4.2 mmol/L (3.5-5.1); Sodium 141 mmol/L (136-145)
[2023-10-16 03:42] LABS: #Basophils Less than 0.03 10x3/uL (0.0-0.2); %Basophils 0.4 % (0.0-1.0); %Eosinophils 5.5 % (0.0-10.0); %Lymphocytes 29.8 % (21.0-51.0); %Monocytes 7.3 % (0.0-10.0); %Neutrophils 56.6 % (42.0-75.0); Hemoglobin 11.5 g/dL (14.0-18.0); Mean Corpuscular HGB CONC 34.8 g/dL (32.0-36.0); Mean Corpuscular Hemoglobin 31.9 pg (27.0-31.0); Mean Corpuscular Volume 91.7 fL (78.0-98.0); Mean Platelet Volume 9.1 fL (7.4-10.4); Platelet Count 183 10x3/uL (130-400); RBC Distribution Width 12.5 % (11.5-14.5)
[2023-10-16 04:08] LABS: Anion Gap 12 mmol/L (10-20); BUN (Urea Nitrogen) 12 mg/dL (8.4-25.7); Calc. Creatinine Clearance 88 mL/min (70-130); Calcium 9.3 mg/dL (7.8-10.44); Carbon Dioxide 28 mmol/L (23-31); Chloride 104 mmol/L (98-107); Estimated GFR 65; Glucose 94 mg/dL (83-110); Magnesium 1.8 mg/dL (1.6-2.6); Potassium 3.8 mmol/L (3.5-5.1); Sodium 140 mmol/L (136-145)
[2023-10-16] MEDS ORDERED: Gentamicin 80 MG/2 ML VIAL ONE (10:24)
[2023-10-16] MEDS ORDERED: CEFAZOLIN 2 GM VIAL ONE (10:25)
[2023-10-16] MEDS ORDERED: Lidocaine 1% (PF) 30 ML VIAL ONE (10:26)
[2023-10-16] MEDS ORDERED: fentaNYL 50 mcg/mL 1 mL Vial ONE ×4 (12:33→13:26)
[2023-10-16] MEDS ORDERED: Midazolam HCl 2 mg/2 ml Vial ONE ×2 (12:33→12:53)
[2023-10-16] MEDS: Cephalexin 250 MG CAP PO SCH (15:35)
[2023-10-16] MEDS: Flecainide 50 MG TAB PO SCH (15:36)
[2023-10-16] MEDS: Metoprolol Tartrate 5 MG (5 mL) VIAL ONE (16:58)
[2023-10-16] MEDS ORDERED: Ondansetron PF 4 MG/2 ML Vial IVP PRN (17:27)
[2023-10-16] MEDS ORDERED: Acetaminophen 325 MG TAB PO PRN (17:30)
[2023-10-16] MEDS: Metoprolol Tartrate 5 MG (5 mL) VIAL IVP SCH (17:39)
[2023-10-16] MEDS: Flecainide Acetate 100 MG TAB PO SCH (17:51)
[2023-10-16] MEDS: Metoprolol Tartrate 25 MG TAB PO SCH (19:55)
[2023-10-16] MEDS ORDERED: Flecainide 50 MG TAB PO SCH (21:00)
[2023-10-17 07:22] LABS: #Basophils 0.03 10x3/uL (0.0-0.2); %Basophils 0.5 % (0.0-1.0); %Monocytes 7.4 % (0.0-10.0); %Neutrophils 70.9 % (42.0-75.0); Hematocrit 33.1 % (42.0-52.0); Hemoglobin 11.6 g/dL (14.0-18.0); Mean Corpuscular Hemoglobin 32.2 pg (27.0-31.0); Mean Corpuscular Volume 91.9 fL (78.0-98.0); Mean Platelet Volume 9.4 fL (7.4-10.4); Platelet Count 160 10x3/uL (130-400); RBC Distribution Width 12.7 % (11.5-14.5)
[2023-10-17 07:38] LABS: Anion Gap 9 mmol/L (10-20); BUN (Urea Nitrogen) 13 mg/dL (8.4-25.7); Calc. Creatinine Clearance 87 mL/min (70-130); Calcium 9.1 mg/dL (7.8-10.44); Carbon Dioxide 28 mmol/L (23-31); Chloride 105 mmol/L (98-107); Estimated GFR 64; Glucose 98 mg/dL (83-110); Potassium 3.9 mmol/L (3.5-5.1); Sodium 138 mmol/L (136-145)
[2023-10-17] MEDS: Flecainide Acetate 100 MG TAB PO SCH (08:50)
[2023-10-17] MEDS: Zolpidem Tartrate 5 MG TAB PO SCH (22:17)
[2023-10-18] MEDS: Zolpidem Tartrate 5 MG TAB PO PRN (21:43)
[2023-10-19] MEDS ORDERED: Apixaban 5 MG TAB PO SCH (09:00)
[2023-10-19 11:39] VITALS: BP 130/77; TEMP 98.4
[2023-10-19] MEDS ORDERED: Flecainide Acetate 100 MG TAB PO SCH ×2 (21:00)
[2023-10-20] MEDS ORDERED: Apixaban 5 MG TAB PO SCH (09:00)
== END 2023-10-19 14:47 | disposition home or self-care (01) | DRG 243 ==
LOC: ERS 23:59 → EDBD 23:59 → ERHOLD 10-13 03:12 → 2NO 10-13 11:19
PROVIDERS: ADMIT Hospitalist; ATTEND Internal Medicine
PROC: 0JH606Z Insertion of Pacemaker, Dual Chamber into Chest Subcutaneous Tissue and Fascia, Open Approach (ICD-10-PCS; principal; 2023-10-13)
PROC: 02H63JZ Insertion of Pacemaker Lead into Right Atrium, Percutaneous Approach (ICD-10-PCS; 2023-10-13)
PROC: 02HK3JZ Insertion of Pacemaker Lead into Right Ventricle, Percutaneous Approach (ICD-10-PCS; 2023-10-13)
DX: I49.5 Sick sinus syndrome (principal); N17.9 Acute kidney failure, unspecified; F32.A Depression, unspecified; K21.9 Gastro-esophageal reflux disease without esophagitis; I10 Essential (primary) hypertension; E78.00 Pure hypercholesterolemia, unspecified; N40.0 Benign prostatic hyperplasia without lower urinary tract symptoms; F39 Unspecified mood [affective] disorder; I48.91 Unspecified atrial fibrillation; F41.9 Anxiety disorder, unspecified; Z88.5 Allergy status to narcotic agent; Z79.899 Other long term (current) drug therapy; Z90.49 Acquired absence of other specified parts of digestive tract; Z98.890 Other specified postprocedural states; Z90.89 Acquired absence of other organs
CPT/HCPCS: 33208; 36415; 36416; 70450; 71045; 71275; 78452; 80048; 80053; 80061; 81001; 83605; 83735; 83880; 84443; 84484; 85025; 85730; 93005; 93010; 93017; 93306; 93798; 94760; 96365; 96366; 96368; 96375; 99152; 99153; A9502; C1785; J1160; J1580; J1650; J2001; J2250; J2405; J2785; J3010; J3475; J7050; Q9967; S0028